=== PATIENT | male | born 1930 | race Caucasian/White ===

== ENCOUNTER → 2017-08-25 | Outpatient (CLI) | payer OTHER ==
[~2017-08-25] MED LIST: AMLO10TA2 PO; APIX5TAB PO; ASPI-1181 PO; ATOR40TA71 PO; CHOL200074 PO; FERR-82 PO; FISH1CAP39 PO; GLUC-148 PO; HYDR25TA PO; METO50TA18 PO; OMEP20CA10 PO; TAMS0.4C32 PO; VALS320T16 PO
== END | disposition home or self-care (01) ==
LOC: SHCH 15:10
PROVIDERS: ATTEND Internal Medicine Cardiovascular Disease
DX: I48.91 Unspecified atrial fibrillation (principal)
CPT/HCPCS: 93306

== ENCOUNTER → 2018-03-22 | Outpatient (CLI) | payer OTHER ==
[~2018-03-22] MED LIST changes: -AMLO10TA2 PO; +AMLO5TAB7 PO; -ASPI-1181 PO; +BACL10TA PO; +BRIM5DRO OS; +BUDE10.22 IH; -CHOL200074 PO; +DOXA4TAB3 PO; -FERR-82 PO; +FURO20TA4 PO; -GLUC-148 PO; +HYDR12.54 PO; -HYDR25TA PO; +LATA7.5D OU; +LOSA100T20 PO; +LOVENOX SQ; -METO50TA18 PO; -OMEP20CA10 PO; +PROP1DRO4 OP; -TAMS0.4C32 PO; +TYLENOL PO; -VALS320T16 PO
== END | disposition home or self-care (01) ==
LOC: RAH 09:35
PROVIDERS: ATTEND Internal Medicine
DX: I50.9 Heart failure, unspecified (principal); I25.10 Atherosclerotic heart disease of native coronary artery without angina pectoris; I48.91 Unspecified atrial fibrillation; Z85.038 Personal history of other malignant neoplasm of large intestine
CPT/HCPCS: 71046

== ENCOUNTER → 2018-04-06 | Outpatient (CLI) | payer OTHER ==
[~2018-04-06] MED LIST changes: +REGADENOSON 0.4 MG/5 ML PF SYG IVP SCH
== END | disposition home or self-care (01) ==
LOC: SHCH 08:03
PROVIDERS: ATTEND Internal Medicine Cardiovascular Disease
DX: I25.10 Atherosclerotic heart disease of native coronary artery without angina pectoris (principal)
CPT/HCPCS: 78452; 93017; 96374; A9500 ×2; J2785

== ENCOUNTER 2018-05-10 05:48 | Day surgery (SDC) | payer OTHER ==
[2018-05-05 09:21] LABS: BASOPHILS % (AUTO) 0.6 % (0.0-5.0); EOSINOPHILS % (AUTO) 1.7 % (0.0-8.0); HEMATOCRIT 45.4 % (42-54); LYMPHOCYTES % (AUTO) 11.7 % (21.0-51.0); MEAN CORPUSCULAR HEMOGLOBIN 28.9 pg (27.0-33.0); MEAN CORPUSCULAR HGB CONC 33.3 g/dL (32.0-36.0); MEAN CORPUSCULAR VOLUME 86.9 fL (79-99); MONOCYTES % (AUTO) 7.3 % (3.0-13.0); NEUTROPHILS % (AUTO) 78.7 % (40.0-77.0); NUCLEATED RED BLOOD CELLS 0.1 % (0.0-0.19); PLATELET COUNT (AUTO) 161 K/uL (130-400); RED BLOOD CELL COUNT(AUTO) 5.22 MIL/uL (4.50-6.20); RED CELL DISTRIBUTION WIDTH 15.7 % (11.0-15.5)
[2018-05-05 09:24] LABS: CREATININE 0.9 mg/dL (0.5-1.5); POTASSIUM 3.7 mmol/L (3.5-5.1)
[2018-05-05 09:30] LABS: APPEARANCE,URINE Clear (CLEAR); BILIRUBIN,URINE Negative (NEGATIVE); COLOR,URINE Yellow (YELLOW); GLUCOSE, URINE (UA) Negative (NEGATIVE); KETONES,URINE Negative (NEGATIVE); LEUKOCYTE ESTERASE ,URINE Negative (NEGATIVE); NITRATE,URINE Negative (NEGATIVE); OCCULT BLOOD,URINE Negative (NEGATIVE); PROTEIN,URINE Negative (NEGATIVE)
[2018-05-05 09:34] LABS: INR 0.99 (0.85-1.15); PARTIAL THROMBOPLASTIN TIME 28.1 SEC (26.3-35.5); PROTHROMBIN TIME 10.4 SEC (9.6-11.6)
--- NOTE | 2018-05-09 12:41 | NUR ---
CHEST XRAY INFORMED GINA IVORY OF ABNORMAL CHEST XRAY. NO ORDERS RECEIVED. PROCEED WITH PLANNED PROCEDURE.
[~2018-05-10] VITALS: Ht 172.7 cm; Wt 75.7 kg
[2018-05-10] VITALS (14 sets, daily range): BP systolic 130–170; BP diastolic 62–91
[~2018-05-10 05:48] MED LIST changes: -AMLO5TAB7 PO; -BACL10TA PO; -FISH1CAP39 PO; -HYDR12.54 PO; -LOSA100T20 PO; +LOSA100T58 PO; -LOVENOX SQ; +METO50TA18 PO; -REGADENOSON 0.4 MG/5 ML PF SYG IVP SCH; +SODIUM CHLORIDE 0.9% 500ML 500 ML IV SCH; -TYLENOL PO
[2018-05-10] MEDS ORDERED: SODIUM CHLORIDE 0.9% 1000ML 1,000 ML IV ONE (07:34)
[2018-05-10] MEDS ORDERED: METO-391 PO (07:43)
[2018-05-10] MEDS ORDERED: OMEG-125 PO (07:43)
[2018-05-10] MEDS ORDERED: HEPARIN SODIUM 1000UNIT/ML 10ML VIAL ONE (08:50)
[2018-05-10] MEDS ORDERED: IOHEXOL 350 MG/ML 100ML INFUS..BTL IV ONE ×2 (08:50→09:34)
[2018-05-10] MEDS ORDERED: IOHEXOL-350 50ML VIAL IV ONE (08:50)
[2018-05-10] MEDS ORDERED: LIDOCAINE HCL 2% 20ML ONE (08:50)
--- NOTE | 2018-05-10 09:05 | NUR ---
TO [facility] PT TAKEN TO [facility] VIA BED BY ERYN [facility]ITAL. PT VOIDED TWICE PRIOR TO TRANSFER.
[2018-05-10] MEDS ORDERED: LABETALOL HCL 5 MG/ML 20ML VIAL IV ONE (09:44)
[2018-05-10] MEDS ORDERED: SODIUM CHLORIDE 0.9% 10 ML VIAL IVP SCH (10:00)
--- NOTE | 2018-05-10 10:27 | NUR ---
RECEIVE PT RECEIVED FROM TELEVISION SERVICER VIA BED. AWAKE ALERT ORIENTED X3. PT STABLE. NO COMPLAINTS MADE. NOT IN ANY APPARENT DISTRESS. CATH SITE TO RIGHT GROIN SOFT, DRESSING DRY AND INTACT, NO OOZING NO HEMATOMA NOTED. PT INSTRUCTED TO KEEP RIGHT LEG STRAIGHT AND DO NOT ELEVATE HEAD, PT VERBALIZED UNDERSTANDING. PT STATES HE NEEDS TO VOID, URINAL IN PLACE.
--- NOTE | 2018-05-10 10:40 | NUR ---
VOID PT VOIDED 50 ML CLEAR YELLOW URINE, STATED HE FEELS HE NEED TO VOID MORE, CLEANED URINAL IN PLACE.
--- NOTE | 2018-05-10 13:09 | NUR ---
DIET PT TOLERATING DIET WELL. IN ROOM WITH PT.
--- NOTE | 2018-05-10 15:30 | NUR ---
ASSESS PT SUPINE ON BED, NO COMPLAINTS MADE, NOT IN ANY APPARENT DISTRESS. AT BEDSIDE. WILL CONTINUE TO MONITOR.
--- NOTE | 2018-05-10 17:15 | NUR ---
DISCHARGE PT DISCHARGED VIA WHEELCHAIR WITH . PT STABLE. NO COMPLAINTS MADE. NOT IN ANY APPARENT DISTRESS. DENIES PAIN OR CHEST PAIN. CATH SITE TO RIGHT GROIN REMAINS SOFT, NO OOZING NO HEMATOMA NOTED. DISCHARGE INSTRUCTIONS GIVEN TO PT AND . ALSO DEMONSTRATED TO PT AND ON HOW TO MONITOR SITE FOR BLEEDING AND HEMATOMA, VERBALIZED UNDERSTANDING.
== END 2018-05-10 17:15 | disposition home or self-care (01) ==
LOC: DAH 05:48
PROVIDERS: ATTEND Internal Medicine Cardiovascular Disease
DX: I25.118 Atherosclerotic heart disease of native coronary artery with other forms of angina pectoris (principal); Z79.899 Other long term (current) drug therapy; I11.0 Hypertensive heart disease with heart failure; I50.40 Unspecified combined systolic (congestive) and diastolic (congestive) heart failure; Z98.890 Other specified postprocedural states; I34.0 Nonrheumatic mitral (valve) insufficiency; E78.00 Pure hypercholesterolemia, unspecified; I48.2 Chronic atrial fibrillation; Z95.0 Presence of cardiac pacemaker; R07.9 Chest pain, unspecified
CPT/HCPCS: 36415; 71045; 80048; 81003; 85025; 85610; 85730; 93005; 93458; A4606; C1894; J1644 ×2; J3490 ×2; J7030; Q9965; Q9967 ×2

== ENCOUNTER → 2018-05-11 | Outpatient (CLI) | payer OTHER ==
[~2018-05-11] MED LIST changes: +METO-391 PO; -METO50TA18 PO; +OMEG-125 PO; -SODIUM CHLORIDE 0.9% 500ML 500 ML IV SCH
[2018-05-11 12:23] LABS: CREATININE 0.9 mg/dL (0.5-1.5)
== END | disposition home or self-care (01) ==
LOC: LAB 11:10
PROVIDERS: ATTEND Internal Medicine Medical Oncology
DX: C18.9 Malignant neoplasm of colon, unspecified (principal)
CPT/HCPCS: 36415; 82565; 84520

== ENCOUNTER → 2018-05-14 | Outpatient (CLI) | payer OTHER ==
[~2018-05-14] MED LIST changes: +IOHEXOL-350 75 ML VIAL IV ONE
== END | disposition home or self-care (01) ==
LOC: RAH 08:40
PROVIDERS: ATTEND Internal Medicine Medical Oncology
DX: C18.9 Malignant neoplasm of colon, unspecified (principal); K80.20 Calculus of gallbladder without cholecystitis without obstruction; J90 Pleural effusion, not elsewhere classified; J98.11 Atelectasis; I70.0 Atherosclerosis of aorta; N32.89 Other specified disorders of bladder
CPT/HCPCS: 74177; Q9967

== ENCOUNTER → 2018-09-19 | Outpatient (CLI) | payer OTHER ==
[~2018-09-19] MED LIST changes: +CETI10TA57 PO; -IOHEXOL-350 75 ML VIAL IV ONE; -LATA7.5D OU; -PROP1DRO4 OP; +[UNRECOGNIZED DRUG - OTHER] OU
[2018-09-19 11:30] LABS: BASOPHILS % (AUTO) 1.1 % (0.0-5.0); EOSINOPHILS % (AUTO) 1.8 % (0.0-8.0); LYMPHOCYTES % (AUTO) 9.2 % (21.0-51.0); MEAN CORPUSCULAR HEMOGLOBIN 29.4 pg (27.0-33.0); MEAN CORPUSCULAR HGB CONC 33.4 g/dL (32.0-36.0); MEAN CORPUSCULAR VOLUME 87.8 fL (79-99); MONOCYTES % (AUTO) 7.1 % (3.0-13.0); NEUTROPHILS % (AUTO) 80.8 % (40.0-77.0); NUCLEATED RED BLOOD CELLS 0.1 % (0.0-0.19); PLATELET COUNT (AUTO) 209 K/uL (130-400); RED BLOOD CELL COUNT(AUTO) 4.44 MIL/uL (4.50-6.20); RED CELL DISTRIBUTION WIDTH 15.9 % (11.0-15.5); WHITE BLOOD COUNT (AUTO) 6.1 K/uL (4.8-10.8)
[2018-09-19 11:38] LABS: HEMOGLOBIN A1C 6.3 % (4.0-6.0)
[2018-09-19 11:46] LABS: ALBUMIN 2.7 g/dL (3.5-5.0); BILIRUBIN,TOTAL 0.8 mg/dL (0.2-1.0); CREATININE 0.8 mg/dL (0.5-1.5); TOTAL PROTEIN, SERUM 6.8 g/dL (6.0-8.3)
== END | disposition home or self-care (01) ==
LOC: LAB 10:43
PROVIDERS: ATTEND Internal Medicine
DX: I11.9 Hypertensive heart disease without heart failure (principal); E78.49 Other hyperlipidemia; E11.59 Type 2 diabetes mellitus with other circulatory complications
CPT/HCPCS: 36415; 80053; 80061; 82043; 83036; 85025

== ENCOUNTER → 2018-09-27 | Outpatient (CLI) | payer OTHER | END | disposition home or self-care (01) | LOC: RAH 14:09 | PROVIDERS: ATTEND Internal Medicine | DX: R60.0 Localized edema (principal) | CPT/HCPCS: 93970 ==

== ENCOUNTER → 2019-05-15 | Outpatient (CLI) | payer OTHER ==
[~2019-05-15] MED LIST changes: +IOHEXOL-350 50ML VIAL IV ONE
== END | disposition home or self-care (01) ==
LOC: RAH 08:52
PROVIDERS: ATTEND Internal Medicine Medical Oncology
DX: C18.9 Malignant neoplasm of colon, unspecified (principal); K80.20 Calculus of gallbladder without cholecystitis without obstruction; N28.1 Cyst of kidney, acquired; J90 Pleural effusion, not elsewhere classified; J98.11 Atelectasis; Z93.3 Colostomy status
CPT/HCPCS: 74178; Q9967

== ENCOUNTER 2019-08-14 18:25 | Inpatient (IN) | payer OTHER ==
[~2019-08-14] VITALS: Ht 177.8 cm; Wt 76.7 kg
[~2019-08-14 18:25] MED LIST changes: -IOHEXOL-350 50ML VIAL IV ONE
[2019-08-14] MEDS ORDERED: ONDANSETRON HCL 4 MG/2 ML VIAL ONE (18:49)
[2019-08-14 19:23] LABS: BASOPHILS % (AUTO) 0.7 % (0.0-5.0); EOSINOPHILS % (AUTO) 0.1 % (0.0-8.0); HEMATOCRIT 39.7 % (42-54); LYMPHOCYTES % (AUTO) 3.4 % (21.0-51.0); MEAN CORPUSCULAR HEMOGLOBIN 28.2 pg (27.0-33.0); MEAN CORPUSCULAR VOLUME 85.6 fL (79-99); MONOCYTES % (AUTO) 6.3 % (3.0-13.0); NEUTROPHILS % (AUTO) 89.3 % (40.0-77.0); PLATELET COUNT (AUTO) 170 K/uL (130-400); RED BLOOD CELL COUNT(AUTO) 4.64 MIL/uL (4.50-6.20); RED CELL DISTRIBUTION WIDTH 15.4 % (11.0-15.5); WHITE BLOOD COUNT (AUTO) 9.7 K/uL (4.8-10.8)
[2019-08-14 19:26] LABS: CREATININE 1.3 mg/dL (0.5-1.5); POTASSIUM 3.2 mmol/L (3.5-5.1)
[2019-08-14 19:30] LABS: ALBUMIN 3.2 g/dL (3.5-5.0); BILIRUBIN,TOTAL 0.9 mg/dL (0.2-1.0); TOTAL PROTEIN, SERUM 7.4 g/dL (6.0-8.3)
[2019-08-14] MEDS: SODIUM CHLORIDE 0.9% 1000ML 1,000 ML IV SCH ×2 (20:32→23:34)
[2019-08-14] MEDS ORDERED: LACTULOSE 20 GM/30 ML UDCUP PO PRN (20:45)
[2019-08-14] MEDS ORDERED: ONDANSETRON HCL 4 MG/2 ML VIAL IV PRN (20:45)
[2019-08-14] MEDS ORDERED: ACETAMINOPHEN 325 MG TAB PO PRN ×2 (20:45)
[2019-08-14] MEDS ORDERED: FAMOTIDINE/PF 20 MG/2 ML VIAL IV ONE (20:45)
[2019-08-14] MEDS ORDERED: HYDRALAZINE HCL 20 MG/ML VIAL ONE (20:58)
[2019-08-14] MEDS ORDERED: INSULIN HUMULIN R 100 UNIT/ML 3ML SQ SCH (21:00)
[2019-08-14 22:00] VITALS: BP 135/76
--- NOTE | 2019-08-14 22:00 | NUR ---
ADMIT NOTE ADMIT TO ROOM 326 VIA STRETCHER FROM ER. PATIENT AWAKE, ALERT, OX3, PATIENT VERY FORGETFUL, LIMITED HISTORY Obainted from patient, right ac 20 with ivf infusing well, right ngt to lis draining brown gastric secretions, fall precautions,teach patient plan of care and expected outcome, patient verbalizes understanding at this time, but forgetful at times, poor historian, limited family history
[2019-08-14] MEDS ORDERED: TERB250T51 PO (22:41)
[2019-08-14] MEDS ORDERED: PANT40TA PO (22:41)
[2019-08-14] MEDS ORDERED: POTA-9 PO (22:41)
[2019-08-14] MEDS ORDERED: ISOS30TA6 PO (22:41)
[2019-08-14] MEDS ORDERED: LATA2.5D2 (22:41)
[2019-08-14] MEDS ORDERED: FURO40TA5 PO (22:41)
[2019-08-14] MEDS: MORPHINE SULFATE 2 MG/ML 1ML SYG IV PRN (22:51)
[2019-08-14] MEDS: LIDOCAINE HCL-MPF 1% 2ML VIAL IV PRN (23:34)
[2019-08-14] MEDS: POTASSIUM CHLORIDE 10MEQ/100ML 100 ML IV PRN (23:34)
[2019-08-15 03:00] VITALS: BP 149/67
[2019-08-15 04:59] LABS: BASOPHILS % (AUTO) 0.6 % (0.0-5.0); EOSINOPHILS % (AUTO) 0.2 % (0.0-8.0); LYMPHOCYTES % (AUTO) 4.3 % (21.0-51.0); MEAN CORPUSCULAR HEMOGLOBIN 28.6 pg (27.0-33.0); MEAN CORPUSCULAR HGB CONC 32.7 g/dL (32.0-36.0); MEAN CORPUSCULAR VOLUME 87.4 fL (79-99); MONOCYTES % (AUTO) 7.8 % (3.0-13.0); NEUTROPHILS % (AUTO) 86.7 % (40.0-77.0); PLATELET COUNT (AUTO) 158 K/uL (130-400); RED BLOOD CELL COUNT(AUTO) 4.69 MIL/uL (4.50-6.20); RED CELL DISTRIBUTION WIDTH 15.5 % (11.0-15.5)
[2019-08-15 05:24] LABS: CREATININE 1.1 mg/dL (0.5-1.5); POTASSIUM 3.3 mmol/L (3.5-5.1)
[2019-08-15] MEDS: POTASSIUM CHLORIDE 10MEQ/100ML 100 ML IV PRN ×2 (05:38→08:23)
[2019-08-15] MEDS: LIDOCAINE HCL-MPF 1% 2ML VIAL IV PRN (05:38)
[2019-08-15] MEDS: INSULIN HUMULIN R 100 UNIT/ML 3ML SQ SCH ×3 (05:54→18:00)
[2019-08-15 08:19] VITALS: BP 138/78
[2019-08-15] MEDS: FAMOTIDINE/PF 20 MG/2 ML VIAL IV SCH (08:23)
[2019-08-15] MEDS: ENOXAPARIN SODIUM 40 MG/0.4 ML SYRINGE SQ SCH (09:00)
--- NOTE | 2019-08-15 09:28 | NUR ---
SURGERY CONSULT CALLED DR LE. AWARE OF CONSULT.WILL COME TO SEE PATIENT LATER TODAY.
[2019-08-15 11:25] VITALS: BP 160/88
--- NOTE | 2019-08-15 11:36 | NUR ---
DCP CM met with pt discussed dc plans. Pt is independent prior to admission, lives at home with spouse. Pt has colostomy supplies, denies any other equipments/services. Feels safe to go back home, spouse and family able to assist with transportation and needs as necessary. DC plan to home once stable. CM to cont to follow up. Addendum: 08/15/19 at 1137 by PERLA EMERSON LVN CM Amended: Links added.
[2019-08-15] MEDS: ZOSYN 3.375GM+NS 50ML 50 ML IV SCH ×2 (13:41→19:54)
[2019-08-15 14:57] LABS: ABG OXYGEN SATURATION 56.9 % (95.0-99.0); BASE EXCESS,VENOUS BLOOD GAS 1.6 (-2.0-3.0); HCO3,VENOUS BLOOD GAS 26.3 (21.0-28.0); PCO2,VENOUS BLOOD GAS 42 (35-48); PH,VENOUS BLOOD GAS 7.416 (7.350-7.450)
--- NOTE | 2019-08-15 15:00 | NUR ---
RD NOTIFICATION PT ADMITTED FOR BOWEL OBSTRUCTION. PT IS NPO WITH NGT TO SUCTION, PENDING SURGICAL RECOMMENDATIONS. PT WITH POOR APPETITE AND WEIGHT LOSS PRIOR TO ADMIT. RECOMMEND TO CONTINUE WITH CURRENT POC. RD TO FOLLOW UP FOR CONTINUED POC. RECOMMEND CONSIDER ALTERED MEANS NUTRITION IF SUSPECTED NPO GREATER THAN 3 DAYS. INCREASED MALNUTRITION RISK SECONDARY TO PREVIOUS WEIGHT LOSS, POOR APPETITE, ADVANCED AGE. RD TO CONTINUE TO MONITOR. PLEASE NOTIFY ADDITIONAL NUTRITION CONCERNS ARISE. THANK YOU. Addendum: 08/15/19 at [address] Amended: Links added.
[2019-08-15 15:56] VITALS: BP 178/79
--- NOTE | 2019-08-15 18:21 | NUR ---
PATIENT'S IS VERY CONFUSED. HE FORGETS THAT HE IS IN THE HOSPITAL AND WANTS TO GO SEE HIS ALEXANDRO. ORIENTED PATIENT TO PLACE AND TIME, HOWEVER PATIENT NEEDS MORE REASSURANCE. I CALLED ALEXANDRO HIS , HE GOT TO TALK TO HER AND CALMED DOWN FOR A LITTLE WHILE. HOWEVER AFTER A FEW MINUTES, HE WAS ASKING FOR ALEXANDRO AGAIN AND WANTED TO GET OUT OF BED. DR FOLEY AWARE. ALEXANDRO STATED HE GETS CONFUSED LIKE THAT AT HOME.
[2019-08-15] MEDS: ALBUTEROL SULFATE 0.083% 2.5 MG/3 ML INH IH SCH ×2 (18:29→23:29)
[2019-08-15] MEDS: POTASSIUM CHLORIDE IV SCH ×2 (18:30→22:55)
[2019-08-15] MEDS: NACL IV SCH ×2 (18:30→22:55)
[2019-08-15] MEDS: DEXTROSE IV SCH ×2 (18:30→22:55)
--- NOTE | 2019-08-15 18:45 | NUR ---
PATIENT PULLED OUT HIS NGT.
[2019-08-15] MEDS: BUDESONIDE 0.5 MG/2 ML INH IH SCH (18:47)
--- NOTE | 2019-08-15 19:23 | NUR ---
14 FR NGT INSERTED. PLACEMENT VERIFIED GASTRIC CONTENT AND AIR BOLUS. PATIENT IS NOW ON A 1:1.
[2019-08-15 19:30] VITALS: BP 158/72
[2019-08-15] MEDS: ATORVASTATIN CALCIUM 40 MG TABLET PO SCH (19:35)
[2019-08-15] MEDS: LATANOPROST 2.5 ML DROPS OU SCH (19:54)
[2019-08-15] MEDS: MORPHINE SULFATE 2 MG/ML 1ML SYG IV PRN (20:00)
[2019-08-15] MEDS ORDERED: SUB PER P&T FOR ASTHMA OR COPD RECOMMENDATION IH SCH (21:00)
--- NOTE | 2019-08-15 21:15 | NUR ---
NGT NGT TO LIS SUCTION WITH POSITIVE PLACEMENT, 1:1 AT BEDSIDE, ANOTHER PATIENT PLACED IN ROOM NEXT DOOR 325 PER CLINICAL ACCOUNT SPECIALIST CHICHO CUMMINGS R.N. ,SO ORDER PACKER CAN SEE BOTH PATIENTS, PATIENT IN ROOM 325 BEDALARM ALARM WENT OFF WHEN ORDER PACKER WENT NEXT DOOR TO CHECK ON MY PATIENT , MR CARRANZA PULLED OUT NGT, HOSPITALIST CHUNG CIRCUIT BOARD ASSEMBLER INORMED WITH ORDERS,CLINICAL ACCOUNT SPECIALIST CHICHO CUMMINGS R.N. NOTIFIED
[2019-08-15] MEDS ORDERED: LORAZEPAM 2 MG/ML 1 ML VIAL IVP SCH (21:30)
--- NOTE | 2019-08-15 22:00 | NUR ---
HOSPITALIST Seema PLEITEZ OXIDATION OPERATOR TO SEE AND EXAMEN PATIENT AT BEDSIDE, WITH ORDERS
--- NOTE | 2019-08-15 22:30 | NUR ---
XRAY ABDOMINAL XRAY KUB PERFROMED AT BEDSIDE, PATIENT CONTINUES CONFUSED, AGITATED AT TIMES
[2019-08-15 23:25] VITALS: BP 169/81
--- NOTE | 2019-08-15 23:25 | NUR ---
RESULTS RELATED STAT KUB RESULTS TO CHUNG PECAN GROWER WITH ORDERS TO GIVEN LORAZEPAM 1 MG IVP , PATIENT CONTINUES CONFUSED, AGITATED, RESTLESS, PULLING OUT IV, YELLING, COMBATIVE
[2019-08-16 04:00] VITALS: BP 178/77
[2019-08-16] MEDS: ZOSYN 3.375GM+NS 50ML 50 ML IV SCH ×3 (04:03→22:36)
[2019-08-16 05:34] LABS: BASOPHILS % (AUTO) 0.6 % (0.0-5.0); EOSINOPHILS % (AUTO) 0.1 % (0.0-8.0); HEMATOCRIT 41.5 % (42-54); LYMPHOCYTES % (AUTO) 3.5 % (21.0-51.0); MEAN CORPUSCULAR HEMOGLOBIN 27.5 pg (27.0-33.0); MEAN CORPUSCULAR HGB CONC 30.8 g/dL (32.0-36.0); MEAN CORPUSCULAR VOLUME 89.1 fL (79-99); MONOCYTES % (AUTO) 10.3 % (3.0-13.0); NEUTROPHILS % (AUTO) 85.2 % (40.0-77.0); PLATELET COUNT (AUTO) 134 K/uL (130-400); RED BLOOD CELL COUNT(AUTO) 4.66 MIL/uL (4.50-6.20); RED CELL DISTRIBUTION WIDTH 15.6 % (11.0-15.5); WHITE BLOOD COUNT (AUTO) 7.7 K/uL (4.8-10.8)
[2019-08-16 05:50] LABS: MAGNESIUM 2.4 mg/dL (1.80-2.40); PHOSPHORUS 3.3 mg/dL (2.5-4.9); POTASSIUM 3.4 mmol/L (3.5-5.1)
[2019-08-16] MEDS: INSULIN HUMULIN R 100 UNIT/ML 3ML SQ SCH ×4 (06:00→18:00)
--- NOTE | 2019-08-16 06:00 | NUR ---
ngt place ngt #16 gauge catheter right nare , tolerated well, positive placement , place to lis as ordered
[2019-08-16] MEDS: ALBUTEROL SULFATE 0.083% 2.5 MG/3 ML INH IH SCH ×3 (06:57→18:43)
[2019-08-16] MEDS: BUDESONIDE 0.5 MG/2 ML INH IH SCH ×2 (06:57→18:43)
[2019-08-16 07:22] VITALS: BP 157/67
[2019-08-16] MEDS: Brimonidine Tartrate/Timolol (Combigan Eye Drops) 1 DROP OS SCH (09:00)
[2019-08-16] MEDS: FAMOTIDINE/PF 20 MG/2 ML VIAL IV SCH (09:08)
[2019-08-16] MEDS: ENOXAPARIN SODIUM 40 MG/0.4 ML SYRINGE SQ SCH (09:08)
[2019-08-16] MEDS: NACL IV SCH ×2 (09:30→19:30)
[2019-08-16] MEDS: POTASSIUM CHLORIDE IV SCH ×2 (09:30→19:30)
[2019-08-16] MEDS: DEXTROSE IV SCH ×2 (09:30→19:30)
[2019-08-16 09:33] LABS: THYROID STIMULATING HORMONE 2.36 uIU/mL (0.36-3.74)
[2019-08-16 10:40] VITALS: BP 162/76
[2019-08-16] MEDS ORDERED: POTASSIUM CHLORIDE 10MEQ/100ML 10 MEQ/100 ML ML IV ONE (10:45)
[2019-08-16] MEDS ORDERED: POTASSIUM CHLORIDE 20MEQ/100ML 100 ML IV SCH (11:30)
[2019-08-16] MEDS ORDERED: METOPROLOL TARTRATE 1 MG/ML 5ML VIAL IV PRN (14:15)
[2019-08-16 14:57] LABS: APPEARANCE,URINE Clear (CLEAR); BILIRUBIN,URINE Negative (NEGATIVE); COLOR,URINE Yellow (YELLOW); GLUCOSE, URINE (UA) Negative (NEGATIVE); KETONES,URINE Negative (NEGATIVE); LEUKOCYTE ESTERASE ,URINE Moderate (NEGATIVE); NITRATE,URINE Negative (NEGATIVE); OCCULT BLOOD,URINE Large (NEGATIVE); PROTEIN,URINE POS 2+ mg/dL (NEGATIVE); UROBILINOGEN,URINE 0.2 mg/dL (0.2-1.0)
[2019-08-16 15:01] LABS: CREATININE,URINE RANDOM 84 mg/dL (30-135); SODIUM,URINE RANDOM 144 mmol/l (40-220)
[2019-08-16 15:17] LABS: BACTERIA,URINE Few /HPF (None Seen); RBC,URINE 26-50 /HPF (0-1)
[2019-08-16 15:22] LABS: SQUAMOUS EPITHELIAL CELL,UR Rare /HPF (0-2)
[2019-08-16 15:41] VITALS: BP 173/84
[2019-08-16] MEDS ORDERED: DIATR MEGLU/DIATRIZOATE SODIUM 30 ML BOTTLE ONE ×3 (16:09→16:38)
[2019-08-16] MEDS: THIAMINE HCL 100 MG/ML 2ML VIAL IVP SCH (17:41)
[2019-08-16] MEDS: CYANOCOBALAMIN (VITAMIN B-12) 1000 MCG/ML 1ML VIAL IM SCH (17:41)
[2019-08-16] MEDS: HYDRALAZINE HCL 20 MG/ML VIAL IV PRN (17:50)
--- NOTE | 2019-08-16 20:20 | NUR ---
NOTIFIED DR LE ON LACTIC ACID OF 2.8 .
[2019-08-16 20:30] LABS: PCO2,VENOUS BLOOD GAS 25 (35-48)
[2019-08-16 20:32] LABS: BASE EXCESS,VENOUS BLOOD GAS 4.4 (-2.0-3.0); HCO3,VENOUS BLOOD GAS 24.3 (21.0-28.0)
[2019-08-16 20:58] LABS: PH,VENOUS BLOOD GAS 7.607 (7.350-7.450)
[2019-08-16] MEDS: ATORVASTATIN CALCIUM 40 MG TABLET PO SCH (21:00)
[2019-08-16 21:02] LABS: BASOPHILS % (AUTO) 0.4 % (0.0-5.0); EOSINOPHILS % (AUTO) 1.2 % (0.0-8.0); HEMATOCRIT 45.3 % (42-54); LYMPHOCYTES % (AUTO) 2.8 % (21.0-51.0); MEAN CORPUSCULAR HEMOGLOBIN 28.2 pg (27.0-33.0); MEAN CORPUSCULAR HGB CONC 31.8 g/dL (32.0-36.0); MEAN CORPUSCULAR VOLUME 88.6 fL (79-99); MONOCYTES % (AUTO) 10.3 % (3.0-13.0); NEUTROPHILS % (AUTO) 84.9 % (40.0-77.0); PLATELET COUNT (AUTO) 138 K/uL (130-400); RED BLOOD CELL COUNT(AUTO) 5.11 MIL/uL (4.50-6.20); RED CELL DISTRIBUTION WIDTH 15.4 % (11.0-15.5); WHITE BLOOD COUNT (AUTO) 7.4 K/uL (4.8-10.8)
--- NOTE | 2019-08-16 21:15 | NUR ---
RADIOLOGY SPOKE WITH LAURIE IN RADIOLOGY. SAID THE STUDIES WERE COMPLETED AND THE NG CAN BE UNCLAMPED AT THIS TIME. CONNECTED NG TO CONTINUOUS SUCTION ON MEDIUM- PREVIOUS SETTINGS SET. DARK GREEN, WITH SEDIMENT BEING SUCTIONED FROM NG. SUCTION CANISTER AT 600ML AT THIS TIME.
--- NOTE | 2019-08-16 21:22 | NUR ---
CRITICAL RESULTS CALLED MD MIMI ABOUT LA OF 2.8 AND A pH 7.8 ON THE VENOUS BLOOD GAS. MED SAID HE WILL COME IN TO SEE THE PATIENT, NO NEW ORDERS GIVEN AT THIS TIME.
[2019-08-16] MEDS: LATANOPROST 2.5 ML DROPS OU SCH (22:47)
--- NOTE | 2019-08-16 23:15 | NUR ---
MD MIMI RAMOS MD SPOKE WITH PT AT BEDSIDE. GAVE ORDERS- ENTERED INTO [facility]. PT VERBALIZED CONSENT FOR PROCEDURE OF EXPLORATORY LAPAROTOMY WITH REVISION OF COLOSTOMY.
[2019-08-16] MEDS ORDERED: SODIUM CHLORIDE 0.9% 500ML 500 ML IV SCH (23:30)
--- NOTE | 2019-08-16 23:45 | NUR ---
SOLE SEAMER INFORMED ABOUT SCHEDULED SURGERY FOR 1000 ON 08/16. ORDERS FAXED TO 1033. MARJ DONOVAN RN SAID THE SURGERY NEEDS TO BE APPROVED FIRST, BUT WILL PLACE IT ON THE SCHEDULE.
[2019-08-16 23:59] VITALS: BP_SYST 136; BP_SYST 148; BP_DIAS 55; BP_DIAS 78
[2019-08-17] VITALS (14 sets, daily range): BP systolic 115–185; BP diastolic 51–92
[2019-08-17] MEDS: ALBUTEROL SULFATE 0.083% 2.5 MG/3 ML INH IH SCH ×5 (00:03→23:17)
[2019-08-17] MEDS ORDERED: ZOSYN 3.375GM+NS 50ML 50 ML IV SCH (01:00)
--- NOTE | 2019-08-17 01:02 | NUR ---
CONSENT FOR EXPLORATORY LAPAROTOMY WITH COLOSTOMY REVISION, SIGNED AND PLACED IN CHART.
[2019-08-17] MEDS: NACL IV SCH (03:24)
[2019-08-17] MEDS: DEXTROSE IV SCH (03:24)
[2019-08-17] MEDS: POTASSIUM CHLORIDE IV SCH (03:24)
[2019-08-17 04:47] LABS: HEMATOCRIT 43.1 % (42-54); MEAN CORPUSCULAR HEMOGLOBIN 28.7 pg (27.0-33.0); MEAN CORPUSCULAR HGB CONC 32.3 g/dL (32.0-36.0); PLATELET COUNT (AUTO) 139 K/uL (130-400); RED BLOOD CELL COUNT(AUTO) 4.84 MIL/uL (4.50-6.20); RED CELL DISTRIBUTION WIDTH 15.7 % (11.0-15.5); WHITE BLOOD COUNT (AUTO) 6.5 K/uL (4.8-10.8)
[2019-08-17 05:11] LABS: BAND NEUTROPHILS % (MANUAL) 16 % (0-2); LYMPHOCYTES % (MANUAL) 4 % (22-44); MAN.DIFF COMMENT-IMPRESSION MANUAL DIFFERENTIAL; MONOCYTES % (MANUAL) 2 % (2-9); PLATELET MORPHOLOGY COMMENT ADEQUATE; SEGMENTED NEUTROPHILS % 78 % (40-70)
[2019-08-17 05:15] LABS: ALBUMIN 2.3 g/dL (3.5-5.0); BILIRUBIN,TOTAL 0.8 mg/dL (0.2-1.0); CREATININE 1.2 mg/dL (0.5-1.5); MAGNESIUM 3.3 mg/dL (1.80-2.40); PHOSPHORUS 3.1 mg/dL (2.5-4.9); POTASSIUM 3.4 mmol/L (3.5-5.1); TOTAL PROTEIN, SERUM 5.9 g/dL (6.0-8.3); URIC ACID 3.6 mg/dL (2.6-7.2)
[2019-08-17] MEDS: INSULIN HUMULIN R 100 UNIT/ML 3ML SQ SCH ×4 (06:00→18:00)
[2019-08-17] MEDS: ZOSYN 3.375GM+NS 50ML 50 ML IV SCH ×2 (06:05→19:36)
[2019-08-17] MEDS: BUDESONIDE 0.5 MG/2 ML INH IH SCH ×2 (06:20→18:48)
--- NOTE | 2019-08-17 08:10 | NUR ---
MIMI PAGED UPDATED MIMI ON PT'S STATUS OVER NIGHT. REPORTED NO OUTPUT FROM COLOSTOMY, CONTINUES WITH GREEN/ BROWN NG DRAINAGE. NO PAIN. NO AMS. SAYS HE WILL FUP WITH PT THIS AM. INFORMED THAT SURGERY HAS BEEN SCHEDULED, PENDING APPROVAL FOR SURGERY.
[2019-08-17] MEDS ORDERED: DEXTROSE 5%-WATER 1,000 ML IV SCH (08:30)
[2019-08-17] MEDS: Brimonidine Tartrate/Timolol (Combigan Eye Drops) 1 DROP OS SCH (09:00)
[2019-08-17] MEDS: CYANOCOBALAMIN (VITAMIN B-12) 1000 MCG/ML 1ML VIAL IM SCH (09:00)
--- NOTE | 2019-08-17 10:03 | NUR ---
TELEPHONE CONSENT GIVEN FOR EXPLORATORY LAPAROTOMY WITH COLONOSCOPY REVISION BY SPOUSE ALEXANDRO CARRANZA. VERIFIED BY PRITI RIVAS, CHARGE NURSE.
[2019-08-17] MEDS ORDERED: LIDOCAINE PF 2% 5ML ABBOJECT ONE (10:41)
[2019-08-17] MEDS ORDERED: PHENYLEPHRINE HCL 10 MG/ML 1ML VIAL IV ONE (10:41)
[2019-08-17] MEDS ORDERED: SUCCINYLCHOLINE CHLORIDE 20 MG/ML 10 ML VIAL ONE (10:41)
[2019-08-17] MEDS ORDERED: FENTANYL CITRATE PF 50 MCG/1 ML 2ML VIAL ONE ×2 (10:42→16:54)
[2019-08-17] MEDS ORDERED: ROCURONIUM 10MG/1ML SYR 10 MG/ML ML ONE ×2 (10:42→14:06)
[2019-08-17] MEDS ORDERED: PROPOFOL 10 MG/ML 20ML VIAL IV ONE (10:42)
[2019-08-17] MEDS: POTASSIUM CHLORIDE 10MEQ/100ML 100 ML IV PRN (11:10)
[2019-08-17 11:16] LABS: INR 1.01 (0.85-1.15); PROTHROMBIN TIME 10.9 SEC (9.6-11.6)
[2019-08-17] MEDS: THIAMINE HCL 100 MG/ML 2ML VIAL IVP SCH (11:21)
[2019-08-17] MEDS: FAMOTIDINE/PF 20 MG/2 ML VIAL IV SCH (11:21)
[2019-08-17] MEDS ORDERED: KETAMINE 50MG/ML SYRINGE 50 MG/ML DISP.SYRIN IV ONE (12:49)
[2019-08-17] MEDS ORDERED: CEFOXITIN SODIUM 2 GM VIAL ONE (13:35)
[2019-08-17 15:20] LABS: ABG BASE EXCESS -5.3 mmol/L (-2.0-3.0); ABG HCO3 20.7 mmol/L (21.0-28.0); ABG OXYGEN SATURATION 98.7 % (95.0-99.0); ABG PCO2 42 mmHg (35-48)
[2019-08-17] MEDS ORDERED: ROPIVACAINE 0.5% 5MG/ML 30ML IJ ONE (15:22)
[2019-08-17] MEDS ORDERED: GLYCOPYRROLATE 1 MG/5 ML SYRINGE ONE (15:32)
[2019-08-17] MEDS ORDERED: NEOSTIGMINE 5MG/5ML SYR IV ONE (15:32)
[2019-08-17] MEDS ORDERED: SODIUM CHLORIDE 0.9% 10 ML VIAL ONE ×2 (15:41→15:44)
[2019-08-17] MEDS ORDERED: ONDANSETRON HCL 4 MG/2 ML VIAL ONE (15:55)
[2019-08-17] MEDS ORDERED: SUGAMMADEX SODIUM 200 MG/2 ML VIAL IV ONE (16:44)
[2019-08-17] MEDS ORDERED: KETOROLAC TROMETHAMINE 30MG/ML ONE (16:51)
[2019-08-17] MEDS ORDERED: FENTANYL CITRATE PF 50 MCG/1 ML 2ML VIAL IVP PRN (17:30)
[2019-08-17 17:41] LABS: ABG BASE EXCESS -6.9 mmol/L (-2.0-3.0); ABG HCO3 19.2 mmol/L (21.0-28.0); ABG OXYGEN SATURATION 99.7 % (95.0-99.0); ABG PCO2 41 mmHg (35-48)
[2019-08-17] MEDS: D5W-1/2 NS/20MEQ KCL 1,000 ML IV SCH (18:02)
[2019-08-17 18:08] LABS: MEAN CORPUSCULAR HEMOGLOBIN 28.6 pg (27.0-33.0); MEAN CORPUSCULAR HGB CONC 31.5 g/dL (32.0-36.0); MEAN CORPUSCULAR VOLUME 90.7 fL (79-99); PLATELET COUNT (AUTO) 153 K/uL (130-400); RED BLOOD CELL COUNT(AUTO) 5.18 MIL/uL (4.50-6.20); RED CELL DISTRIBUTION WIDTH 15.9 % (11.0-15.5); WHITE BLOOD COUNT (AUTO) 7.6 K/uL (4.8-10.8)
[2019-08-17 18:25] LABS: CREATININE 1.4 mg/dL (0.5-1.5); POTASSIUM 3.6 mmol/L (3.5-5.1)
[2019-08-17 18:30] LABS: ALBUMIN 2.2 g/dL (3.5-5.0); BILIRUBIN,TOTAL 0.8 mg/dL (0.2-1.0); PHOSPHORUS 4.4 mg/dL (2.5-4.9); TOTAL PROTEIN, SERUM 5.8 g/dL (6.0-8.3)
[2019-08-17] MEDS: ATORVASTATIN CALCIUM 40 MG TABLET PO SCH (19:17)
[2019-08-17] MEDS: METOPROLOL TARTRATE 1 MG/ML 5ML VIAL IV PRN (19:35)
[2019-08-17] MEDS ORDERED: LACTATED RINGERS 1000ML 1,000 ML IV SCH (20:00)
[2019-08-17] MEDS: LATANOPROST 2.5 ML DROPS OU SCH (20:05)
[2019-08-17 21:29] LABS: ABG BASE EXCESS -3.3 mmol/L (-2.0-3.0); ABG HCO3 20.9 mmol/L (21.0-28.0); ABG OXYGEN SATURATION 98.9 % (95.0-99.0); ABG PCO2 35 mmHg (35-48)
[2019-08-17] MEDS: HYDRALAZINE HCL 20 MG/ML VIAL IV PRN (21:54)
[2019-08-18] VITALS (23 sets, daily range): BP systolic 114–179; BP diastolic 57–77
[2019-08-18] MEDS ORDERED: LACTATED RINGERS 1000ML 1,000 ML IV ONE ×2 (00:29→00:45)
[2019-08-18] MEDS: D5W-1/2 NS/20MEQ KCL 1,000 ML IV SCH ×2 (03:30→08:24)
[2019-08-18] MEDS: INSULIN HUMULIN R 100 UNIT/ML 3ML SQ SCH ×5 (06:00→23:40)
[2019-08-18 06:08] LABS: BASOPHILS % (AUTO) 0.3 % (0.0-5.0); EOSINOPHILS % (AUTO) 0.4 % (0.0-8.0); HEMATOCRIT 40.1 % (42-54); LYMPHOCYTES % (AUTO) 3.1 % (21.0-51.0); MEAN CORPUSCULAR HEMOGLOBIN 28.1 pg (27.0-33.0); MEAN CORPUSCULAR HGB CONC 31.4 g/dL (32.0-36.0); MEAN CORPUSCULAR VOLUME 89.3 fL (79-99); MONOCYTES % (AUTO) 8.6 % (3.0-13.0); NEUTROPHILS % (AUTO) 87.1 % (40.0-77.0); PLATELET COUNT (AUTO) 123 K/uL (130-400); RED BLOOD CELL COUNT(AUTO) 4.49 MIL/uL (4.50-6.20); RED CELL DISTRIBUTION WIDTH 16.2 % (11.0-15.5); WHITE BLOOD COUNT (AUTO) 10.8 K/uL (4.8-10.8)
[2019-08-18] MEDS: BUDESONIDE 0.5 MG/2 ML INH IH SCH ×2 (06:11→18:11)
[2019-08-18] MEDS: ALBUTEROL SULFATE 0.083% 2.5 MG/3 ML INH IH SCH ×4 (06:11→23:12)
[2019-08-18 06:30] LABS: ALBUMIN 1.8 g/dL (3.5-5.0); BILIRUBIN,TOTAL 0.8 mg/dL (0.2-1.0); CREATININE 1.2 mg/dL (0.5-1.5); PHOSPHORUS 3.2 mg/dL (2.5-4.9); POTASSIUM 3.8 mmol/L (3.5-5.1)
[2019-08-18] MEDS: ENOXAPARIN SODIUM 40 MG/0.4 ML SYRINGE SQ SCH (08:25)
[2019-08-18] MEDS: THIAMINE HCL 100 MG/ML 2ML VIAL IVP SCH (08:25)
[2019-08-18] MEDS: ZOSYN 3.375GM+NS 50ML 50 ML IV SCH ×2 (08:25→19:23)
[2019-08-18] MEDS: Brimonidine Tartrate/Timolol (Combigan Eye Drops) 1 DROP OS SCH (08:34)
[2019-08-18] MEDS: CYANOCOBALAMIN (VITAMIN B-12) 1000 MCG/ML 1ML VIAL IM SCH (08:52)
[2019-08-18] MEDS: FAMOTIDINE/PF 20 MG/2 ML VIAL IV SCH (08:52)
[2019-08-18] MEDS ORDERED: LACTATED RINGERS 1000ML 1,000 ML IV SCH (11:15)
[2019-08-18 11:46] LABS: INR 1.11 (0.85-1.15); PROTHROMBIN TIME 11.9 SEC (9.6-11.6)
[2019-08-18 11:58] LABS: POTASSIUM,URINE RANDOM 80 mmol/L (25-125); SODIUM,URINE RANDOM < 15 mmol/l (40-220)
[2019-08-18] MEDS: HYDRALAZINE HCL 20 MG/ML VIAL IV PRN (17:21)
--- NOTE | 2019-08-18 19:00 | NUR ---
PT AT THIS TIME IS CONFUSED, AAO1. ATTEMPTING TO GET OUT OF BED AND TAKE OFF PULSE OX AND GARBER CATHETER. PT HR IS AFIB 120-130'S. WILL GIVE SOME HALDOL PRN AND LOPRESSOR.
[2019-08-18] MEDS: HALOPERIDOL LACTATE 5 MG/ML VIAL IV PRN ×2 (19:18→23:35)
[2019-08-18] MEDS: METOPROLOL TARTRATE 1 MG/ML 5ML VIAL IV PRN (19:59)
[2019-08-18] MEDS: ATORVASTATIN CALCIUM 40 MG TABLET PO SCH (20:34)
[2019-08-18] MEDS: LATANOPROST 2.5 ML DROPS OU SCH (21:22)
--- NOTE | 2019-08-18 23:30 | NUR ---
PT AT THIS TIME IS CALMER, AA01, ATTEMPTING TO SLEEP. WAS GIVEN HALDOL PRN. STATES NO PAIN. VOIDING INTO GARBER. PICC LINE PATENT.
[2019-08-18] MEDS: MORPHINE SULFATE 2 MG/ML 1ML SYG IV PRN (23:51)
[2019-08-19] VITALS (26 sets, daily range): BP systolic 116–188; BP diastolic 50–86
--- NOTE | 2019-08-19 03:00 | NUR ---
DR. LE ROUNDED ON PT. ASSESSED PT. WAS INFORMED OF DISTENTION NOTED. STATES TO CONTINUE ON NGT LOW SUCTION. FLUSH QSHIFT. ICE CHIPS ALLOWED, Q4HRS. TO KEEP GARBER A TOTAL OF 10 DAYS SINCE SURGERY. HE IS AWARE OF PT'S MENTAL STATUS. TO DECREASE NARCOTICS, AGREES TO HALDOL USE WHEN PT BECOME AGITATED. TO HAVE PT GET PT UP TO CHAIR IN THE AM.
[2019-08-19 03:53] LABS: HEMATOCRIT 38.5 % (42-54); MEAN CORPUSCULAR HEMOGLOBIN 27.8 pg (27.0-33.0); MEAN CORPUSCULAR HGB CONC 31.2 g/dL (32.0-36.0); MEAN CORPUSCULAR VOLUME 89.1 fL (79-99); PLATELET COUNT (AUTO) 134 K/uL (130-400); RED BLOOD CELL COUNT(AUTO) 4.32 MIL/uL (4.50-6.20); WHITE BLOOD COUNT (AUTO) 10.1 K/uL (4.8-10.8)
[2019-08-19 04:13] LABS: CREATININE 1.3 mg/dL (0.5-1.5); PHOSPHORUS 2.6 mg/dL (2.5-4.9); POTASSIUM 3.6 mmol/L (3.5-5.1)
[2019-08-19] MEDS: INSULIN HUMULIN R 100 UNIT/ML 3ML SQ SCH ×3 (05:29→17:50)
--- NOTE | 2019-08-19 05:36 | NUR ---
SADIB BEING DONE AT THIS TIME.
[2019-08-19] MEDS: ZOSYN 3.375GM+NS 50ML 50 ML IV SCH ×2 (06:20→18:18)
[2019-08-19] MEDS: ALBUTEROL SULFATE 0.083% 2.5 MG/3 ML INH IH SCH ×4 (06:23→23:06)
[2019-08-19] MEDS: D5W-1/2 NS/20MEQ KCL 1,000 ML IV SCH ×3 (06:23→15:53)
[2019-08-19] MEDS: BUDESONIDE 0.5 MG/2 ML INH IH SCH ×2 (06:23→18:40)
[2019-08-19] MEDS: FAMOTIDINE/PF 20 MG/2 ML VIAL IV SCH (08:31)
[2019-08-19] MEDS: CYANOCOBALAMIN (VITAMIN B-12) 1000 MCG/ML 1ML VIAL IM SCH (08:31)
[2019-08-19] MEDS: THIAMINE HCL 100 MG/ML 2ML VIAL IVP SCH (08:31)
[2019-08-19] MEDS: ENOXAPARIN SODIUM 40 MG/0.4 ML SYRINGE SQ SCH (08:34)
[2019-08-19] MEDS: Brimonidine Tartrate/Timolol (Combigan Eye Drops) 1 DROP OS SCH (08:44)
--- NOTE | 2019-08-19 10:55 | NUR ---
DR. CEJA IN ROOM SPEAKING WITH PT. RE:PLAN OF CARE. QUESTIONS ANSWERED AND PT. VERBALIZED UNDERSTANDING.
[2019-08-19] MEDS: POTASSIUM CHLORIDE 10MEQ/100ML 100 ML IV PRN (11:09)
[2019-08-19] MEDS: METOPROLOL TARTRATE 1 MG/ML 5ML VIAL IV SCH ×2 (12:39→18:19)
--- NOTE | 2019-08-19 14:38 | NUR ---
DR. HORNER IN ROOM SPEAKING WITH PT. RE:PLAN OF CARE. QUESTIONS ANSWERED BY DR. HORNER.
--- NOTE | 2019-08-19 15:00 | NUR ---
SITTING UP IN RECLINER AT BEDSIDE WITH EYES CLOSED, RESP.'S EVEN AND UNLABORED. CALL LIGHT WITHIN REACH. PT. VISIBLE FROM NURSE'S STATION.
--- NOTE | 2019-08-19 15:42 | NUR ---
SHADIA FOLLOW UP Pt with bowel rest. PICC placed. Notification for TPN Initiation. TPN recommendations: 65mls/hr + Intralipid MWF. Order placed in Pt chart. RN notified. S/p Ex lap. Pt with abdominal distention, no colostomy output per EMR. RD to continue to monitor. Please notify as additional nutrition concerns arise. Thank you. Addendum: 08/19/19 at [address] Amended: Links added.
[2019-08-19] MEDS: HALOPERIDOL LACTATE 5 MG/ML VIAL IV PRN (15:53)
--- NOTE | 2019-08-19 16:00 | NUR ---
pt agitated trying to get out of chair marguerite chandler
--- NOTE | 2019-08-19 19:06 | NUR ---
PT. SITTING IN RECLINER AT BEDSIDE WATCHING TELEVISION. ROOM DOOR OPEN, VISIBLE FROM NURSE'S STATION; CALL LIGHT WITHIN REACH. REPORT TO INCOMING SHIFT.
[2019-08-19] MEDS: HYDRALAZINE HCL 20 MG/ML VIAL IV PRN (20:56)
[2019-08-19] MEDS: ATORVASTATIN CALCIUM 40 MG TABLET PO SCH (20:56)
[2019-08-19] MEDS: LATANOPROST 2.5 ML DROPS OU SCH (20:56)
[2019-08-20] VITALS (18 sets, daily range): BP systolic 116–197; BP diastolic 53–93
[2019-08-20] MEDS: METOPROLOL TARTRATE 1 MG/ML 5ML VIAL IV SCH ×4 (00:53→17:25)
[2019-08-20 03:45] LABS: MEAN CORPUSCULAR HGB CONC 31.5 g/dL (32.0-36.0); MEAN CORPUSCULAR VOLUME 88.9 fL (79-99); PLATELET COUNT (AUTO) 129 K/uL (130-400); RED BLOOD CELL COUNT(AUTO) 3.71 MIL/uL (4.50-6.20); RED CELL DISTRIBUTION WIDTH 16.1 % (11.0-15.5); WHITE BLOOD COUNT (AUTO) 9.1 K/uL (4.8-10.8)
[2019-08-20 04:03] LABS: CREATININE 0.9 mg/dL (0.5-1.5); POTASSIUM 3.4 mmol/L (3.5-5.1)
[2019-08-20] MEDS: D5W-1/2 NS/20MEQ KCL 1,000 ML IV SCH (05:26)
[2019-08-20] MEDS: POTASSIUM CHLORIDE 10MEQ/100ML 100 ML IV PRN (05:36)
[2019-08-20] MEDS: INSULIN HUMULIN R 100 UNIT/ML 3ML SQ SCH ×4 (06:00→18:00)
[2019-08-20] MEDS: ALBUTEROL SULFATE 0.083% 2.5 MG/3 ML INH IH SCH ×4 (06:21→23:02)
[2019-08-20] MEDS: BUDESONIDE 0.5 MG/2 ML INH IH SCH ×2 (06:21→18:07)
[2019-08-20] MEDS: Brimonidine Tartrate/Timolol (Combigan Eye Drops) 1 DROP OS SCH (07:34)
[2019-08-20] MEDS: FAMOTIDINE/PF 20 MG/2 ML VIAL IV SCH (07:52)
[2019-08-20] MEDS: ZOSYN 3.375GM+NS 50ML 50 ML IV SCH ×2 (07:52→18:35)
[2019-08-20] MEDS: THIAMINE HCL 100 MG/ML 2ML VIAL IVP SCH (07:52)
[2019-08-20] MEDS: CYANOCOBALAMIN (VITAMIN B-12) 1000 MCG/ML 1ML VIAL IM SCH (07:52)
[2019-08-20] MEDS: ENOXAPARIN SODIUM 40 MG/0.4 ML SYRINGE SQ SCH (08:02)
[2019-08-20] MEDS: HYDRALAZINE HCL 20 MG/ML VIAL IV PRN ×2 (08:38→17:56)
[2019-08-20] MEDS ORDERED: M.V.I. IV [ADULT] 10 ML in CLINIMIX E 5%-15% 2,000 ML IV ONE (12:00)
--- NOTE | 2019-08-20 13:18 | NUR ---
DR. Dandre CEJA IN ROOM SPEAKING WITH PT. RE:PLAN OF CARE AND QUESTIONS ANSWERED. PT. SITTING IN RECLINER AT BEDSIDE.
--- NOTE | 2019-08-20 13:30 | NUR ---
ASSISTED BACK TO BED FROM RECLINER PER PT.'S REQUEST. NGT PLACED BACK TO SUCTION.CALL LIGHT WITHIN REACH, VERBALIZED ABILITY TO USE. ROOM DOOR OPEN, VISIBLE FROM NURSE'S STATION.
--- NOTE | 2019-08-20 13:33 | NUR ---
ASSISTED BACK TO BED FROM RECLINER. CALL LIGHT WITHIN REACH, VERBALIZED ABILITY TO USE. ROOM DOOR OPEN, VISIBLE FROM NURSE'S STATION.
[2019-08-20] MEDS: POTASSIUM CHLORIDE 20 MEQ in DEXTROSE 5%-WATER 1,000 ML IV SCH (14:44)
--- NOTE | 2019-08-20 14:46 | NUR ---
RECEIVED CALL FROM PT.'S SPOUSE AND FAMILY MEMBER; UPDATED ON STATUS AND QUESTIONS ANSWERED. VERBALIZED UNDERSTANDING.
[2019-08-20] MEDS: METOCLOPRAMIDE 10 MG/2 ML VIAL IVP SCH (17:24)
--- NOTE | 2019-08-20 20:30 | NUR ---
PATIENT UPDATE Received order for pt to transfer to room 402 at 2009, report given to Kady Delong RN who will assume care of pt on the floor. Pt transferred via the bed at 2029 with 2 duty officer's, vital signs stable, not in any form of distress.
--- NOTE | 2019-08-20 20:40 | NUR ---
PATIENT RECEIVED FROM ICU, STATUS CHANGE TO PCCU STATUS. PATIENT IS AAOX2-3, NO ACUTE DISTRESS NOTED. REPORT FROM HO CERNA. POD# EXP LAP WITH EXTENSIVE LYSIS OF ADHESIONS FOR SMALL BOWEL OBSTRUCTION. NGT NOTED, PLACEMENT VERIFIED AND CONNECTED TO LOW INTERMITTENT WALL SUCTION. ABDOMINAL DRESSING NOTED, D/T, SAPNA DRAIN SECURED TO PATIENT. COLOSTOMY NOTED WITH NO OUT PUT IN BAG. HYPOACTIVE BOWEL SOUNDS. F/C NOTED, SECURED TO PATIENT AND DRAINING TO GRAVITY. PICC LINE TO BIBI, ALL PORTS PATENT. POC DISCUSSED WITH PATIENT. TELE AFIB 92. WILL CONT TO MONITOR CLOSELY. CALL STARK IS WITH IN REACH. SR UP X4. Addendum: 08/20/19 at 2209 by MARIELLA VELASCO RN RN Amended: Links added.
[2019-08-20] MEDS: ATORVASTATIN CALCIUM 40 MG TABLET PO SCH (20:42)
[2019-08-20] MEDS: LATANOPROST 2.5 ML DROPS OU SCH (21:25)
[2019-08-21] VITALS (7 sets, daily range): BP systolic 133–173; BP diastolic 68–89
[2019-08-21] MEDS: METOCLOPRAMIDE 10 MG/2 ML VIAL IVP SCH ×5 (00:28→23:09)
[2019-08-21] MEDS: METOPROLOL TARTRATE 1 MG/ML 5ML VIAL IV SCH ×5 (00:29→23:10)
[2019-08-21] MEDS: INSULIN HUMULIN R 100 UNIT/ML 3ML SQ SCH ×5 (00:32→23:43)
[2019-08-21] MEDS: POTASSIUM CHLORIDE 20 MEQ in DEXTROSE 5%-WATER 1,000 ML IV SCH (04:01)
[2019-08-21 05:43] LABS: HEMATOCRIT 34.6 % (42-54); MEAN CORPUSCULAR HEMOGLOBIN 27.5 pg (27.0-33.0); MEAN CORPUSCULAR HGB CONC 31.2 g/dL (32.0-36.0); PLATELET COUNT (AUTO) 167 K/uL (130-400); RED BLOOD CELL COUNT(AUTO) 3.93 MIL/uL (4.50-6.20); RED CELL DISTRIBUTION WIDTH 15.9 % (11.0-15.5); WHITE BLOOD COUNT (AUTO) 9.3 K/uL (4.8-10.8)
[2019-08-21 05:58] LABS: ALBUMIN 1.7 g/dL (3.5-5.0); BILIRUBIN,TOTAL 0.6 mg/dL (0.2-1.0); CREATININE 0.9 mg/dL (0.5-1.5); MAGNESIUM 2.1 mg/dL (1.80-2.40); PHOSPHORUS 2.8 mg/dL (2.5-4.9); POTASSIUM 3.8 mmol/L (3.5-5.1); TOTAL PROTEIN, SERUM 5.4 g/dL (6.0-8.3)
[2019-08-21] MEDS: ZOSYN 3.375GM+NS 50ML 50 ML IV SCH (06:00)
[2019-08-21] MEDS: ALBUTEROL SULFATE 0.083% 2.5 MG/3 ML INH IH SCH ×4 (06:15→23:45)
[2019-08-21] MEDS: BUDESONIDE 0.5 MG/2 ML INH IH SCH ×2 (06:23→18:35)
[2019-08-21] MEDS: Brimonidine Tartrate/Timolol (Combigan Eye Drops) 1 DROP OS SCH (09:00)
[2019-08-21] MEDS: FAMOTIDINE/PF 20 MG/2 ML VIAL IV SCH (09:30)
[2019-08-21] MEDS: CYANOCOBALAMIN (VITAMIN B-12) 1000 MCG/ML 1ML VIAL IM SCH (09:30)
[2019-08-21] MEDS: THIAMINE HCL 100 MG/ML 2ML VIAL IVP SCH (09:30)
[2019-08-21] MEDS: ENOXAPARIN SODIUM 40 MG/0.4 ML SYRINGE SQ SCH (09:31)
[2019-08-21] MEDS: HYDRALAZINE HCL 20 MG/ML VIAL IV PRN ×2 (09:35→17:58)
[2019-08-21] MEDS ORDERED: ENOXAPARIN SODIUM 1 MG/KG SQ SCH (10:45)
[2019-08-21] MEDS ORDERED: FLUTICASONE PROPIONATE HFA 220 MCG/PUFF 12 GM INHR IH SCH (11:15)
--- NOTE | 2019-08-21 11:20 | NUR ---
RECEIVED REPORT FROM ULTRASOUND, DIMITRY DOPPLER POSITIVE FOR DVT, FINDINGS REPORTED TO DR CEJA, PATIENT HAS BEEN STARTED ON LOVENOX 1MG/KG BID, ARM CONTINUES WITH REDNESS AND PITTING EDEMA +4, RADIAL AND BRACHIAL PULSES PRESENT, CAP REFILL <3 SECS, HAND WARM GOOD STRENGTH, SENSATION INTACT. WILL CONTINUE TO MONITOR.
[2019-08-21] MEDS: FLUTICASONE PROPIONATE 50MCG/SPRAY 16 GM BOTTLE EN SCH ×2 (12:30→23:11)
[2019-08-21] MEDS: ENOXAPARIN SODIUM 80 MG/0.8 ML SQ SCH ×2 (13:00→23:09)
--- NOTE | 2019-08-21 13:44 | NUR ---
SHADIA FOLLOW UP NOTE PT CONTINUES WITH TPN @65MLS/HR. KCl + D5 IV SOLN IN PLACE @75MLS/HR. I/O OF 08/20/19: 1691/1135 TOTAL NUTRITION: 1414 KCAL, 78GM PROTEIN. PT WITH NGT FOR SUCTION, IMPROVING ILEUS, PER NOTE. REC TO CONTINUE POC. RD TO MONITOR FOR ADVANCEMENT TO ENTERAL/PO NUTRITION. Addendum: 08/21/19 at [address] Amended: Links added.
[2019-08-21] MEDS ORDERED: POLYETHYLENE GLYCOL 3350 17 GM POWD.PACK PO SCH (14:15)
--- NOTE | 2019-08-21 17:00 | NUR ---
PATIENT IS CONFUSED, ORIENTED TO PERSON, STANDING ON EDGE OF BED UNSTEADY GAIT, PULLED OUT NGT TUBE, INTACT, ASSISTED TO BED, FINDINGS REPORTED TO DR CEJA, RECEIVED ORDERS FOR 1:1 SITTER, NGT REPLACED TOLERED WELL, PLACEMENT VERIFIED.
[2019-08-21] MEDS: HALOPERIDOL LACTATE 5 MG/ML VIAL IV PRN (17:59)
[2019-08-21] MEDS: FAT EMULSIONS 20% 250ML 250 ML IV SCH (19:54)
[2019-08-21] MEDS ORDERED: M.V.I. IV [ADULT] 10 ML in CLINIMIX E 5%-15% 2,000 ML IV SCH (20:00)
[2019-08-21] MEDS ORDERED: M.V.I. IV [ADULT] 10 ML in CLINIMIX E 4.25%-5% SOLUTION 2,000 ML IV SCH (21:45)
[2019-08-21] MEDS: LATANOPROST 2.5 ML DROPS OU SCH (23:10)
[2019-08-21] MEDS: ATORVASTATIN CALCIUM 40 MG TABLET PO SCH (23:10)
[2019-08-22 03:18] VITALS: BP 142/77
[2019-08-22 04:12] LABS: HEMATOCRIT 33.8 % (42-54); MEAN CORPUSCULAR HEMOGLOBIN 28.1 pg (27.0-33.0); MEAN CORPUSCULAR HGB CONC 31.7 g/dL (32.0-36.0); MEAN CORPUSCULAR VOLUME 88.7 fL (79-99); PLATELET COUNT (AUTO) 195 K/uL (130-400); RED BLOOD CELL COUNT(AUTO) 3.81 MIL/uL (4.50-6.20); RED CELL DISTRIBUTION WIDTH 15.9 % (11.0-15.5); WHITE BLOOD COUNT (AUTO) 8.5 K/uL (4.8-10.8)
[2019-08-22 04:29] LABS: ALBUMIN 1.6 g/dL (3.5-5.0); BILIRUBIN,TOTAL 0.5 mg/dL (0.2-1.0); CREATININE 0.8 mg/dL (0.5-1.5); MAGNESIUM 2.8 mg/dL (1.80-2.40); PHOSPHORUS 3.2 mg/dL (2.5-4.9); POTASSIUM 3.9 mmol/L (3.5-5.1); TOTAL PROTEIN, SERUM 5.1 g/dL (6.0-8.3)
[2019-08-22 04:36] LABS: BASOPHILS % (MANUAL) 2 % (0-2); LYMPHOCYTES % (MANUAL) 10 % (22-44); MONOCYTES % (MANUAL) 6 % (2-9); SEGMENTED NEUTROPHILS % 82 % (40-70)
[2019-08-22 04:37] LABS: PLATELET MORPHOLOGY COMMENT ADEQUATE
[2019-08-22] MEDS: INSULIN HUMULIN R 100 UNIT/ML 3ML SQ SCH ×3 (06:00→18:00)
[2019-08-22] MEDS: METOCLOPRAMIDE 10 MG/2 ML VIAL IVP SCH ×3 (06:05→19:46)
[2019-08-22] MEDS: ALBUTEROL SULFATE 0.083% 2.5 MG/3 ML INH IH SCH ×4 (06:05→23:11)
[2019-08-22] MEDS: BUDESONIDE 0.5 MG/2 ML INH IH SCH ×2 (06:06→18:36)
[2019-08-22] MEDS: METOPROLOL TARTRATE 1 MG/ML 5ML VIAL IV SCH ×3 (06:06→19:46)
[2019-08-22 07:20] VITALS: BP 158/73
[2019-08-22] MEDS: Brimonidine Tartrate/Timolol (Combigan Eye Drops) 1 DROP OS SCH (09:00)
[2019-08-22] MEDS: THIAMINE HCL 100 MG/ML 2ML VIAL IVP SCH (09:56)
[2019-08-22] MEDS: CYANOCOBALAMIN (VITAMIN B-12) 1000 MCG/ML 1ML VIAL IM SCH (09:56)
[2019-08-22] MEDS: FAMOTIDINE/PF 20 MG/2 ML VIAL IV SCH (09:56)
[2019-08-22] MEDS: ENOXAPARIN SODIUM 80 MG/0.8 ML SQ SCH ×2 (09:57→22:45)
[2019-08-22] MEDS: FLUTICASONE PROPIONATE 50MCG/SPRAY 16 GM BOTTLE EN SCH ×2 (09:58→22:34)
[2019-08-22 10:57] VITALS: BP 152/77
[2019-08-22] MEDS: KETOROLAC TROMETHAMINE 30MG/ML IV PRN (13:40)
[2019-08-22 15:54] VITALS: BP_SYST 148; BP_SYST 164; BP_DIAS 46; BP_DIAS 73
--- NOTE | 2019-08-22 17:45 | NUR ---
RECEIVED PT. AWAKE, ALERT X2. PT DENIES ANY PAIN. 20G IV TO LEFT FA ASSESSED/ FLUSHED WITH 10 MLS, INTACT PATENT AND NO REDNESS NOTED TO SITE. SWELLING NOTED TO RT ARM, DENIES ANY PAIN, PICC LINE SLAINE LOCKED. GARBER CATHETER NOTED, DRAINING YELLOW URINE. NG TUBE IN PLACE ON SUCTION LOW INT. VITALS STABLE. WILL CONTINUE TO MONITOR.
--- NOTE | 2019-08-22 17:45 | NUR ---
RECEIVED PT. AWAKE, ALERT X2. PT DENIES ANY PAIN. 20G IV TO LEFT FA ASSESSED/ FLUSHED WITH 10 MLS FLUSH. INTACT, PATENT, AND NO REDNESS NOTED TO SITE. SWELLING NOTED TO RIGHT ARM , DENIES ANY PAIN, PICC LINE SALINE LOCKED. NOTED GARBER CATHETER DRAINING YELLOW URINE. NG TUBE IN PLACE AND ON LOW INT SUCTION. VITALS STABLE. WILL CONTINUE TO MONITOR.
--- NOTE | 2019-08-22 18:32 | NUR ---
PICC line discontinued as ordered. Patient tolerated procedure without any signs of distress. Monitoring continues.
[2019-08-22 19:40] VITALS: BP 159/78
[2019-08-22] MEDS ORDERED: M.V.I. IV [ADULT] 10 ML in CLINIMIX E 4.25%-5% SOLUTION 2,000 ML IV SCH (20:45)
[2019-08-22] MEDS: ATORVASTATIN CALCIUM 40 MG TABLET PO SCH (21:00)
[2019-08-22] MEDS: LATANOPROST 2.5 ML DROPS OU SCH (22:37)
[2019-08-23] MEDS: METOCLOPRAMIDE 10 MG/2 ML VIAL IVP SCH ×5 (00:06→23:32)
[2019-08-23] MEDS: METOPROLOL TARTRATE 1 MG/ML 5ML VIAL IV SCH ×5 (00:09→23:31)
--- NOTE | 2019-08-23 00:13 | NUR ---
MD ROUNDS DR. LE HERE TO SEE PATIENT. CHECKED HIS NGT, OUT PUT, COLOSTOMY (NO STOOL YET, ONLY PASSING GAS), PPN, NO ANTIBIOTICS IN EMAR AND HE SAYS HE DOES NOT NEED THEM AT THIS TIME, WANTS SAPNA TO BE STRIPED EVERY SHIFT AND HE DID STRIP IT, REMOVED DRESSING FROM INCISION AND SAID TO LEAVE OPEN TO AIR, EXCEPT FOR LOWER AREA WHERE FOLD IS AND MOISTURE CAN FORM. APPLIED DRY GAUZE ON THAT AREA. ASKED TO GIVE MIRALAX ONE TIME DOSE AND AWAIT IF STOOL PASSES IN COLOSTOMY BY LATER TODAY. IF NOT SO, ORDER AN SMALL BOWEL FOLLOW THROUGH. MD SAID HE WILL BE AVAILABLE TO BE CALLED IF NEEDED. HE EXPLAINED PLAN TO PATIENT AND PATIENT ACKNOWLEDGED UNDERSTANDING.
[2019-08-23] MEDS ORDERED: POLYETHYLENE GLYCOL 3350 17 GM POWD.PACK PO ONE (00:15)
[2019-08-23 01:09] VITALS: BP 142/68
[2019-08-23] MEDS ORDERED: POLYETHYLENE GLYCOL 3350 17 GM POWD.PACK ONE (02:09)
--- NOTE | 2019-08-23 02:10 | NUR ---
NOTE ADMINISTERED MIRALAX VIA NGT AND WILL CLAMP FOR 1 HR PER MD INDICATION.
[2019-08-23 04:00] VITALS: BP 141/64
[2019-08-23 05:40] LABS: HEMATOCRIT 34.5 % (42-54); MEAN CORPUSCULAR HEMOGLOBIN 28.4 pg (27.0-33.0); MEAN CORPUSCULAR HGB CONC 31.9 g/dL (32.0-36.0); MEAN CORPUSCULAR VOLUME 88.9 fL (79-99); PLATELET COUNT (AUTO) 238 K/uL (130-400); RED BLOOD CELL COUNT(AUTO) 3.88 MIL/uL (4.50-6.20); RED CELL DISTRIBUTION WIDTH 15.5 % (11.0-15.5); WHITE BLOOD COUNT (AUTO) 8.8 K/uL (4.8-10.8)
[2019-08-23 05:49] LABS: CREATININE 0.8 mg/dL (0.5-1.5); POTASSIUM 4.1 mmol/L (3.5-5.1)
[2019-08-23 05:57] LABS: BASOPHILS % (MANUAL) 1 % (0-2); EOSINOPHILS % (MANUAL) 1 % (1-6); LYMPHOCYTES % (MANUAL) 8 % (22-44); MAN.DIFF COMMENT-IMPRESSION MANUAL DIFFERENTIAL; MONOCYTES % (MANUAL) 8 % (2-9); SEGMENTED NEUTROPHILS % 82 % (40-70)
[2019-08-23 05:58] LABS: PLATELET MORPHOLOGY COMMENT ADEQUATE
[2019-08-23] MEDS: INSULIN HUMULIN R 100 UNIT/ML 3ML SQ SCH ×4 (06:00→17:13)
[2019-08-23 06:32] LABS: MAGNESIUM 2.5 mg/dL (1.80-2.40); PHOSPHORUS 4.3 mg/dL (2.5-4.9)
[2019-08-23] MEDS: BUDESONIDE 0.5 MG/2 ML INH IH SCH ×2 (06:35→19:26)
[2019-08-23] MEDS: ALBUTEROL SULFATE 0.083% 2.5 MG/3 ML INH IH SCH ×3 (06:35→19:12)
[2019-08-23 07:00] VITALS: BP 134/66
[2019-08-23] MEDS ORDERED: DIATR MEGLU/DIATRIZOATE SODIUM 30 ML BOTTLE ONE (08:23)
[2019-08-23] MEDS: Brimonidine Tartrate/Timolol (Combigan Eye Drops) 1 DROP OS SCH (09:00)
[2019-08-23] MEDS: ENOXAPARIN SODIUM 80 MG/0.8 ML SQ SCH ×2 (09:59→20:32)
[2019-08-23] MEDS: FAMOTIDINE/PF 20 MG/2 ML VIAL IV SCH (09:59)
[2019-08-23] MEDS: THIAMINE HCL 100 MG/ML 2ML VIAL IVP SCH (09:59)
[2019-08-23] MEDS: FAT EMULSIONS 20% 250ML 250 ML IV SCH (10:01)
[2019-08-23] MEDS: FLUTICASONE PROPIONATE 50MCG/SPRAY 16 GM BOTTLE EN SCH ×2 (10:08→20:33)
[2019-08-23] MEDS: CYANOCOBALAMIN (VITAMIN B-12) 1000 MCG/ML 1ML VIAL IM SCH (12:49)
--- NOTE | 2019-08-23 14:13 | NUR ---
Patient notiifed of order to remove NG tube, bedside swallow test and advancing diet as tolerated if able to swallow. Patient verbalized understanding. NG tube removed, patient tolerated well without pain, only stating slight discomfort.
[2019-08-23 15:30] VITALS: BP 145/80
[2019-08-23 19:33] VITALS: BP 153/80
[2019-08-23] MEDS: LATANOPROST 2.5 ML DROPS OU SCH (20:31)
[2019-08-23] MEDS: ATORVASTATIN CALCIUM 40 MG TABLET PO SCH (20:32)
[2019-08-24] VITALS (7 sets, daily range): BP systolic 137–159; BP diastolic 54–73
[2019-08-24] MEDS: ALBUTEROL SULFATE 0.083% 2.5 MG/3 ML INH IH SCH ×5 (00:37→23:09)
[2019-08-24 05:56] LABS: ALBUMIN 1.6 g/dL (3.5-5.0); BILIRUBIN,TOTAL 0.4 mg/dL (0.2-1.0); CREATININE 0.7 mg/dL (0.5-1.5); MAGNESIUM 2.5 mg/dL (1.80-2.40); PHOSPHORUS 3.7 mg/dL (2.5-4.9); POTASSIUM 3.8 mmol/L (3.5-5.1); TOTAL PROTEIN, SERUM 5.3 g/dL (6.0-8.3)
[2019-08-24] MEDS: INSULIN HUMULIN R 100 UNIT/ML 3ML SQ SCH ×4 (06:00→16:11)
[2019-08-24] MEDS: METOCLOPRAMIDE 10 MG/2 ML VIAL IVP SCH ×3 (06:27→18:27)
[2019-08-24] MEDS: METOPROLOL TARTRATE 1 MG/ML 5ML VIAL IV SCH ×3 (06:27→18:28)
[2019-08-24] MEDS: BUDESONIDE 0.5 MG/2 ML INH IH SCH ×2 (06:56→18:37)
--- NOTE | 2019-08-24 07:58 | NUR ---
PATIENT UPDATE Pt slept wellovernight, no complaints of pain, no nausea and vomiting. Tolerating the clear liquid diet well Finishingup the ongoing PPN and will try to advance the diet to full liquid at lunch Assisted up to the chair this am,tolerated well.
[2019-08-24] MEDS: FLUTICASONE PROPIONATE 50MCG/SPRAY 16 GM BOTTLE EN SCH ×2 (08:34→22:06)
[2019-08-24] MEDS: FAMOTIDINE/PF 20 MG/2 ML VIAL IV SCH (08:35)
[2019-08-24] MEDS: THIAMINE HCL 100 MG/ML 2ML VIAL IVP SCH (08:35)
[2019-08-24] MEDS: ENOXAPARIN SODIUM 80 MG/0.8 ML SQ SCH ×2 (08:36→22:09)
[2019-08-24] MEDS: Brimonidine Tartrate/Timolol (Combigan Eye Drops) 1 DROP OS SCH (08:42)
[2019-08-24] MEDS: LATANOPROST 2.5 ML DROPS OU SCH (22:06)
[2019-08-24] MEDS: ATORVASTATIN CALCIUM 40 MG TABLET PO SCH (22:07)
[2019-08-24] MEDS: DOCUSATE SODIUM 100 MG CAP PO SCH (22:07)
[2019-08-25] MEDS: METOCLOPRAMIDE 10 MG/2 ML VIAL IVP SCH ×5 (00:39→23:29)
[2019-08-25] MEDS: METOPROLOL TARTRATE 1 MG/ML 5ML VIAL IV SCH ×3 (00:41→12:16)
[2019-08-25 03:41] VITALS: BP 144/65
[2019-08-25 05:30] LABS: BASOPHILS % (AUTO) 0.7 % (0.0-5.0); EOSINOPHILS % (AUTO) 2.4 % (0.0-8.0); HEMATOCRIT 31.3 % (42-54); LYMPHOCYTES % (AUTO) 9.5 % (21.0-51.0); MEAN CORPUSCULAR HEMOGLOBIN 28.4 pg (27.0-33.0); MEAN CORPUSCULAR HGB CONC 32.3 g/dL (32.0-36.0); MEAN CORPUSCULAR VOLUME 87.9 fL (79-99); MONOCYTES % (AUTO) 6.7 % (3.0-13.0); PLATELET COUNT (AUTO) 280 K/uL (130-400); RED BLOOD CELL COUNT(AUTO) 3.56 MIL/uL (4.50-6.20); RED CELL DISTRIBUTION WIDTH 15.6 % (11.0-15.5); WHITE BLOOD COUNT (AUTO) 7.7 K/uL (4.8-10.8)
[2019-08-25 05:50] LABS: CREATININE 0.8 mg/dL (0.5-1.5); POTASSIUM 3.8 mmol/L (3.5-5.1)
[2019-08-25] MEDS: INSULIN HUMULIN R 100 UNIT/ML 3ML SQ SCH ×4 (06:00→21:00)
[2019-08-25] MEDS: ALBUTEROL SULFATE 0.083% 2.5 MG/3 ML INH IH SCH ×4 (06:25→23:48)
[2019-08-25] MEDS: BUDESONIDE 0.5 MG/2 ML INH IH SCH ×2 (06:51→19:01)
[2019-08-25 08:07] VITALS: BP 152/68
[2019-08-25] MEDS: THIAMINE HCL 100 MG/ML 2ML VIAL IVP SCH (08:23)
[2019-08-25] MEDS: FAMOTIDINE/PF 20 MG/2 ML VIAL IV SCH (08:23)
[2019-08-25] MEDS: DOCUSATE SODIUM 100 MG CAP PO SCH ×2 (08:23→21:36)
[2019-08-25] MEDS: ENOXAPARIN SODIUM 80 MG/0.8 ML SQ SCH ×2 (08:24→21:39)
[2019-08-25 11:49] VITALS: BP 127/76
--- NOTE | 2019-08-25 12:21 | NUR ---
BLOOD SUGAR OF 146, NO COVERAGE, PT IS ON A 1/2 SLIDING SCALE, CHANGE TO AC AND HS PT IS ON A DIET.
[2019-08-25] MEDS: Brimonidine Tartrate/Timolol (Combigan Eye Drops) 1 DROP OS SCH (12:24)
[2019-08-25] MEDS: FLUTICASONE PROPIONATE 50MCG/SPRAY 16 GM BOTTLE EN SCH ×2 (12:25→21:36)
[2019-08-25] MEDS ORDERED: METOPROLOL TARTRATE 1 MG/ML 5ML VIAL IV PRN (13:15)
--- NOTE | 2019-08-25 14:45 | NUR ---
ASSIT BACK TO BED ,WITH HELP. HOB UP . CALL LIGHT IN REACH,
[2019-08-25 16:55] VITALS: BP 147/68
[2019-08-25 19:09] VITALS: BP 138/59
[2019-08-25] MEDS: ATORVASTATIN CALCIUM 40 MG TABLET PO SCH (21:35)
[2019-08-25] MEDS: LATANOPROST 2.5 ML DROPS OU SCH (21:36)
[2019-08-25 23:23] VITALS: BP 155/65
[2019-08-26 03:44] VITALS: BP 137/60
[2019-08-26] MEDS: INSULIN HUMULIN R 100 UNIT/ML 3ML SQ SCH ×4 (05:56→21:00)
[2019-08-26] MEDS: METOCLOPRAMIDE 10 MG/2 ML VIAL IVP SCH ×3 (06:07→19:52)
[2019-08-26 06:09] LABS: ALBUMIN 1.7 g/dL (3.5-5.0); BILIRUBIN,TOTAL 0.5 mg/dL (0.2-1.0); CREATININE 0.8 mg/dL (0.5-1.5); MAGNESIUM 2.1 mg/dL (1.80-2.40); PHOSPHORUS 2.8 mg/dL (2.5-4.9); TOTAL PROTEIN, SERUM 5.3 g/dL (6.0-8.3)
[2019-08-26] MEDS: BUDESONIDE 0.5 MG/2 ML INH IH SCH ×2 (06:51→18:43)
[2019-08-26] MEDS: ALBUTEROL SULFATE 0.083% 2.5 MG/3 ML INH IH SCH ×4 (06:51→23:29)
--- NOTE | 2019-08-26 08:00 | NUR ---
RT ARM KEPT UP ON A PILLOW ,DUE TO POSTIVE DVT PT IS GETTING LOVENOX , MEIDCATIO SQ BID, CMS PRESENT TO HIS RT AND , AND STRONG RADIAL PULSES NOTED . CALL LIGHT INREACH
[2019-08-26 08:25] VITALS: BP 146/61
--- NOTE | 2019-08-26 08:50 | NUR ---
DYSPHAGIA EVAL COMPLETED. NO S/S OF ASPIRATION. RECOMMEND PUREE, THIN, AND PILLS WHOLE WITH LIQUIDS. Pt DOWNGRADED TO PUREED TO COMPENSATE FOR POOR DENTITION. STRATEGIES: SMALL BITES/SIPS, SIT UPRIGHT. BRICK KILN BURNER COORDINATED WITH NURSE MAYORGA. Addendum: 08/26/[address] GENE PATEL Amended: Links added.
[2019-08-26] MEDS: FAMOTIDINE/PF 20 MG/2 ML VIAL IV SCH (08:52)
[2019-08-26] MEDS: THIAMINE HCL 100 MG/ML 2ML VIAL IVP SCH (08:52)
[2019-08-26] MEDS: ENOXAPARIN SODIUM 80 MG/0.8 ML SQ SCH ×2 (08:53→21:43)
[2019-08-26] MEDS: DOCUSATE SODIUM 100 MG CAP PO SCH ×2 (08:53→21:43)
[2019-08-26] MEDS: FLUTICASONE PROPIONATE 50MCG/SPRAY 16 GM BOTTLE EN SCH ×2 (08:56→21:47)
[2019-08-26] MEDS: Brimonidine Tartrate/Timolol (Combigan Eye Drops) 1 DROP OS SCH (08:57)
[2019-08-26] MEDS: FAT EMULSIONS 20% 250ML 250 ML IV SCH (09:58)
[2019-08-26] MEDS ORDERED: POLYETHYLENE GLYCOL 3350 17 GM POWD.PACK PO SCH (10:15)
--- NOTE | 2019-08-26 10:15 | NUR ---
DR. LE CALLED AND UPDATE OF PT.S TATUS , COLOSTOMY , GARBER CATHETER AND ACTIVITY . . CONT WITH CARE AND WILL BE IN TO SEE HIM, LATE THIS PM. OR AM.
[2019-08-26 13:39] VITALS: BP 146/76
[2019-08-26 17:26] VITALS: BP 159/71
[2019-08-26 19:40] VITALS: BP 149/62
[2019-08-26] MEDS: ATORVASTATIN CALCIUM 40 MG TABLET PO SCH (21:43)
[2019-08-26] MEDS: LATANOPROST 2.5 ML DROPS OU SCH (21:47)
[2019-08-26 23:22] VITALS: BP 138/60
[2019-08-27] MEDS: METOCLOPRAMIDE 10 MG/2 ML VIAL IVP SCH ×4 (00:28→21:46)
[2019-08-27 03:45] VITALS: BP 153/81
[2019-08-27] MEDS: KETOROLAC TROMETHAMINE 30MG/ML IV PRN (04:30)
[2019-08-27 05:40] LABS: CREATININE 0.7 mg/dL (0.5-1.5)
[2019-08-27] MEDS: ALBUTEROL SULFATE 0.083% 2.5 MG/3 ML INH IH SCH ×4 (06:25→23:43)
[2019-08-27] MEDS: BUDESONIDE 0.5 MG/2 ML INH IH SCH ×2 (06:25→19:06)
[2019-08-27] MEDS: INSULIN HUMULIN R 100 UNIT/ML 3ML SQ SCH ×4 (07:30→21:00)
--- NOTE | 2019-08-27 08:16 | NUR ---
OUTPUT 10CC REMOVED FROM SAPNA DRAIN. NO OUTPUT FROM COLOSTOMY BAG
[2019-08-27 08:18] VITALS: BP 165/96
[2019-08-27] MEDS: Brimonidine Tartrate/Timolol (Combigan Eye Drops) 1 DROP OS SCH (09:00)
[2019-08-27] MEDS: DOCUSATE SODIUM 100 MG CAP PO SCH ×2 (09:44→21:46)
[2019-08-27] MEDS: FLUTICASONE PROPIONATE 50MCG/SPRAY 16 GM BOTTLE EN SCH ×2 (09:45→22:02)
[2019-08-27] MEDS: FAMOTIDINE/PF 20 MG/2 ML VIAL IV SCH (09:45)
[2019-08-27] MEDS: THIAMINE HCL 100 MG/ML 2ML VIAL IVP SCH (09:45)
[2019-08-27] MEDS: ENOXAPARIN SODIUM 80 MG/0.8 ML SQ SCH ×2 (09:56→21:48)
--- NOTE | 2019-08-27 10:13 | NUR ---
GARBER REMOVAL: EMPTIED 200 MLS OF YELLOW URINE WITH SMALL AMOUNTS OF SEDIMENT. USING CLEAN TECHNIQUE PER DR MOBLEY REMOVED GARBER CATHETER AT 1013. BULB DEFLATED, EMPTIED 8 MLS. PT TOLERATED WELL, DENIES ANY PAIN. WILL CONTINUE TO MONITOR.
--- NOTE | 2019-08-27 10:30 | NUR ---
FOLLOW UP COMPLETED. PROCESS SAFETY SPECIALIST COORDINATED WITH NURSE WALLACE. Pt IS TOLERATING DIET RECOMMENDATIONS WITH NO S/S OF ASPIRATION. Pt WILL BE ADVANCED TO MECHANICAL SOFT SOLIDS TOLERATED. Addendum: 08/27/[address] GENE PATEL Amended: Links added.
[2019-08-27 12:17] VITALS: BP 119/63
--- NOTE | 2019-08-27 13:00 | NUR ---
PT TOLERATING GI SOFT/BLAND DIET WELL WITH NO SIGNS OF ASPIRATION. WILL CONTINUE TO MONITOR.
--- NOTE | 2019-08-27 13:22 | NUR ---
RD FOLLOW UP Pt tolerating GI Soft/[place], Puree diet with no report of GI distress, improving PO intake. Recommend to advance diet as tolerated per HEMODIALYSIS TECHNICIAN recommendations. Recommend to add 30mL ProMod TID (nutritional protein supplementation). RD to continue to monitor. Please notify as nutritional concerns arise. Thank you. Addendum: 08/27/19 at [address] Amended: Links added.
[2019-08-27 16:20] VITALS: BP 159/69
--- NOTE | 2019-08-27 16:44 | NUR ---
VOID POST-F/C REMOVAL: PT VOIDED X1 , INCONTINENT YELLOW URINE, NO ODOR NOTED WILL CONTINUE TO MONITOR.
[2019-08-27 20:53] VITALS: BP 168/77
[2019-08-27] MEDS: ATORVASTATIN CALCIUM 40 MG TABLET PO SCH (21:46)
[2019-08-27] MEDS: HYDRALAZINE HCL 20 MG/ML VIAL IV PRN (21:50)
[2019-08-27] MEDS: LATANOPROST 2.5 ML DROPS OU SCH (22:02)
--- NOTE | 2019-08-27 23:30 | NUR ---
redness and swelling to RUE, elevated on pillows, patient without any pain voiced. Addendum: 08/28/19 at 0015 by RIKA EMERSON RN RN Amended: Links added.
--- NOTE | 2019-08-27 23:30 | NUR ---
INCISION TO LOWER PART OF MIDLINE INCISION UNABLE TO BE ASSESSED EARLIER DUE TO PATIENT DID NOT WISH FOR ME TO TOUCH SITE BECAUSE IT HURT HIM WHEN I WOULD TRY TO CHECK THE AREA. AT THIS TIME, PATIENT' S HOB LOWERED TO CHECK AREA, REPOSITIONING PATIENT. I NOTED THE MEDARDO 1 TO 2 NOT ATTACHING SKIN, NO DRAINAGE NOTED. PATIENT DENIES ANY PAIN TO SITE. DRY GAUZE APPLIED TO PREVENT MOISTURE FROM GETTING INTO OPEN INCISIONAL AREA, WHICH IS APPROXIMATELY 1-1.5 CM. Addendum: 08/28/19 at 0015 by RIKA EMERSON RN RN Amended: Links added.
[2019-08-28] VITALS (8 sets, daily range): BP systolic 129–161; BP diastolic 60–75
[2019-08-28 05:23] LABS: BASOPHILS % (AUTO) 0.8 % (0.0-5.0); EOSINOPHILS % (AUTO) 1.4 % (0.0-8.0); HEMATOCRIT 33.1 % (42-54); LYMPHOCYTES % (AUTO) 5.8 % (21.0-51.0); MEAN CORPUSCULAR HEMOGLOBIN 28.4 pg (27.0-33.0); MEAN CORPUSCULAR VOLUME 88.7 fL (79-99); NEUTROPHILS % (AUTO) 85.7 % (40.0-77.0); PLATELET COUNT (AUTO) 289 K/uL (130-400); RED BLOOD CELL COUNT(AUTO) 3.73 MIL/uL (4.50-6.20); RED CELL DISTRIBUTION WIDTH 15.8 % (11.0-15.5); WHITE BLOOD COUNT (AUTO) 8.7 K/uL (4.8-10.8)
[2019-08-28 05:49] LABS: CREATININE 0.7 mg/dL (0.5-1.5)
[2019-08-28] MEDS: METOCLOPRAMIDE 10 MG/2 ML VIAL IVP SCH ×5 (06:55→23:35)
[2019-08-28] MEDS: ALBUTEROL SULFATE 0.083% 2.5 MG/3 ML INH IH SCH ×4 (06:56→23:06)
[2019-08-28] MEDS: BUDESONIDE 0.5 MG/2 ML INH IH SCH ×2 (07:04→18:54)
[2019-08-28] MEDS: INSULIN HUMULIN R 100 UNIT/ML 3ML SQ SCH ×4 (07:30→21:00)
[2019-08-28] MEDS: THIAMINE HCL 100 MG/ML 2ML VIAL IVP SCH (08:43)
[2019-08-28] MEDS: FAMOTIDINE/PF 20 MG/2 ML VIAL IV SCH (08:46)
[2019-08-28] MEDS: DOCUSATE SODIUM 100 MG CAP PO SCH ×2 (08:46→21:00)
[2019-08-28] MEDS: ENOXAPARIN SODIUM 80 MG/0.8 ML SQ SCH ×2 (08:47→22:00)
[2019-08-28] MEDS: FLUTICASONE PROPIONATE 50MCG/SPRAY 16 GM BOTTLE EN SCH ×2 (08:48→21:58)
[2019-08-28] MEDS: Brimonidine Tartrate/Timolol (Combigan Eye Drops) 1 DROP OS SCH (08:58)
[2019-08-28] MEDS: FAT EMULSIONS 20% 250ML 250 ML IV SCH (10:00)
[2019-08-28] MEDS ORDERED: POLYETHYLENE GLYCOL 3350 17 GM POWD.PACK PO SCH (11:45)
--- NOTE | 2019-08-28 11:56 | NUR ---
CM NOTE/DECLINED SNF PATIENT WITH HISTORY OF DEMENTIA. CALLED, PER SPOUSE, DECLINING SNF AT THE MOMENT. PER , IF PATIENT ABLE TO WALK, SHE WANTS HIM TO RETURN HOME. PER PT DEPARTMENT, PATIENT HAS STRENGHT TO AMBULATE TO BATHROOM OR KITCHEN, ABLE TO GET IN AND OUT OF BED AND INTO CHAIR. THIS RELAYED TO SPOUSE, PER SPOUSE, PLAN IS TO DC HOME. PRIMARY NURSE, MARIFER CERNA AND DR. FOLEY MADE AWARE OF DECLINE OF SNF.
[2019-08-28 11:59] LABS: MAGNESIUM 2.1 mg/dL (1.80-2.40); PHOSPHORUS 3.2 mg/dL (2.5-4.9)
--- NOTE | 2019-08-28 12:05 | NUR ---
DR FORRESTER PAGED REGARDING CONSULT. PENDING CB
--- NOTE | 2019-08-28 18:10 | NUR ---
DR FORRESTER CONSULT DR FORRESTER CAME TO SEE PATIENT REGARDING PHIMOSIS. DR FORRESTER USED MANUAL PRESSURE IN ORDER TO DECREASE SWELLING TO PENIS AND RETRACT [place]. PATIENT TOLERATED WELL, NO C/O PAIN AT THIS TIME.
[2019-08-28] MEDS: ATORVASTATIN CALCIUM 40 MG TABLET PO SCH (21:58)
[2019-08-28] MEDS: LATANOPROST 2.5 ML DROPS OU SCH (21:59)
[2019-08-29 04:00] VITALS: BP 134/65
[2019-08-29] MEDS: METOCLOPRAMIDE 10 MG/2 ML VIAL IVP SCH ×3 (05:24→17:52)
[2019-08-29] MEDS: INSULIN HUMULIN R 100 UNIT/ML 3ML SQ SCH ×4 (05:28→21:00)
[2019-08-29] MEDS: BUDESONIDE 0.5 MG/2 ML INH IH SCH ×2 (06:50→18:32)
[2019-08-29] MEDS: ALBUTEROL SULFATE 0.083% 2.5 MG/3 ML INH IH SCH ×4 (06:50→23:03)
[2019-08-29 08:13] VITALS: BP 157/86
[2019-08-29] MEDS: Brimonidine Tartrate/Timolol (Combigan Eye Drops) 1 DROP OS SCH (09:00)
[2019-08-29] MEDS: FAMOTIDINE/PF 20 MG/2 ML VIAL IV SCH (09:09)
[2019-08-29] MEDS: THIAMINE HCL 100 MG/ML 2ML VIAL IVP SCH (09:10)
[2019-08-29] MEDS: NEOMY SULF/BACITRA/POLYMYXIN B 1 EACH PACKET TP SCH (09:11)
[2019-08-29] MEDS: DOCUSATE SODIUM 100 MG CAP PO SCH ×2 (09:12→21:40)
[2019-08-29] MEDS: METOPROLOL SUCCINATE 50 MG TAB.SR.24H PO SCH (09:12)
[2019-08-29] MEDS: FLUTICASONE PROPIONATE 50MCG/SPRAY 16 GM BOTTLE EN SCH ×2 (09:12→21:41)
[2019-08-29] MEDS: ENOXAPARIN SODIUM 80 MG/0.8 ML SQ SCH ×2 (09:17→21:00)
[2019-08-29] MEDS ORDERED: POLYETHYLENE GLYCOL 3350 17 GM POWD.PACK PO SCH (10:15)
[2019-08-29] MEDS ORDERED: POLYETHYLENE GLYCOL 3350 17 GM POWD.PACK ONE (10:38)
[2019-08-29 11:25] VITALS: BP 119/60
[2019-08-29 16:56] VITALS: BP 163/62
--- NOTE | 2019-08-29 16:57 | NUR ---
CM NOTE/ALONDRA LYON REVISITED REFERRAL FOR [facility], PER SPOUSE, [place] [facility]. [facility] FILLED. [facility]ACKET AND [facility] FAXED AND RECEIVED, CONFIRMED RECEIVED. GERDA AT [facility] AWARE, PENDING AUTHORIZATION.
[2019-08-29 20:00] VITALS: BP 155/72
[2019-08-29] MEDS: ATORVASTATIN CALCIUM 40 MG TABLET PO SCH (21:40)
[2019-08-29] MEDS: LATANOPROST 2.5 ML DROPS OU SCH (21:41)
[2019-08-29 23:56] VITALS: BP 143/72
[2019-08-30 04:00] VITALS: BP 178/73
[2019-08-30] MEDS: METOCLOPRAMIDE 10 MG/2 ML VIAL IVP SCH ×4 (05:24→18:00)
[2019-08-30] MEDS: INSULIN HUMULIN R 100 UNIT/ML 3ML SQ SCH ×4 (05:32→21:00)
[2019-08-30 05:55] LABS: BASOPHILS % (AUTO) 1.1 % (0.0-5.0); EOSINOPHILS % (AUTO) 1.8 % (0.0-8.0); HEMATOCRIT 33.3 % (42-54); LYMPHOCYTES % (AUTO) 7.6 % (21.0-51.0); MEAN CORPUSCULAR HEMOGLOBIN 28.2 pg (27.0-33.0); MEAN CORPUSCULAR HGB CONC 31.8 g/dL (32.0-36.0); MEAN CORPUSCULAR VOLUME 88.6 fL (79-99); MONOCYTES % (AUTO) 7.9 % (3.0-13.0); NEUTROPHILS % (AUTO) 81.3 % (40.0-77.0); PLATELET COUNT (AUTO) 372 K/uL (130-400); RED BLOOD CELL COUNT(AUTO) 3.76 MIL/uL (4.50-6.20); RED CELL DISTRIBUTION WIDTH 15.9 % (11.0-15.5); WHITE BLOOD COUNT (AUTO) 7.2 K/uL (4.8-10.8)
[2019-08-30 06:06] LABS: CREATININE 0.6 mg/dL (0.5-1.5); MAGNESIUM 1.9 mg/dL (1.80-2.40); POTASSIUM 3.9 mmol/L (3.5-5.1)
[2019-08-30] MEDS: BUDESONIDE 0.5 MG/2 ML INH IH SCH ×2 (06:46→18:04)
[2019-08-30] MEDS: ALBUTEROL SULFATE 0.083% 2.5 MG/3 ML INH IH SCH ×3 (06:46→18:04)
[2019-08-30 08:00] VITALS: BP 160/75
[2019-08-30] MEDS: METOPROLOL SUCCINATE 50 MG TAB.SR.24H PO SCH (08:34)
[2019-08-30] MEDS: POLYETHYLENE GLYCOL 3350 17 GM POWD.PACK PO SCH (08:34)
[2019-08-30] MEDS: FAMOTIDINE/PF 20 MG/2 ML VIAL IV SCH (08:34)
[2019-08-30] MEDS: DOCUSATE SODIUM 100 MG CAP PO SCH ×2 (08:34→21:58)
[2019-08-30] MEDS: ENOXAPARIN SODIUM 80 MG/0.8 ML SQ SCH ×2 (08:35→21:59)
[2019-08-30] MEDS: FLUTICASONE PROPIONATE 50MCG/SPRAY 16 GM BOTTLE EN SCH ×2 (08:36→21:58)
[2019-08-30] MEDS: NEOMY SULF/BACITRA/POLYMYXIN B 1 EACH PACKET TP SCH (08:37)
[2019-08-30] MEDS: Brimonidine Tartrate/Timolol (Combigan Eye Drops) 1 DROP OS SCH (08:38)
[2019-08-30] MEDS: THIAMINE HCL 100 MG/ML 2ML VIAL IVP SCH (09:00)
[2019-08-30 11:30] VITALS: BP 140/63
--- NOTE | 2019-08-30 14:31 | NUR ---
RD FOLLOW UP NOTE Pt tolerating GI Soft/[place] Diet order, advanced from Puree diet. Good PO intake. No report of GI distress. Noted 3+ RUE, non-pit edema. RD to continue to monitor nutritional related labs and PO status. Please notify as additional nutrition concerns arise. Thank you. Addendum: 08/30/19 at [address] Amended: Links added.
--- NOTE | 2019-08-30 14:52 | NUR ---
CM NOTE/[facility] ACCEPTED PER [facility], PATIENT ACCEPTED TO FACILITY. DR. FOLEY MADE AWARE, STATES DR. LE PENDING TO REMOVE SAPNA DRAIN, POSSIBLE DC 08/30. BRYAN CERNA, PRIMARY NURSE, MADE AWARE OF ACCEPTANCE AND POSS DC DATE.
[2019-08-30 16:00] VITALS: BP 180/74
--- NOTE | 2019-08-30 16:12 | NUR ---
paged dr. varma through answering service. will wait for his call back.
--- NOTE | 2019-08-30 17:46 | NUR ---
call answering service follow up page for dr. varma
--- NOTE | 2019-08-30 18:23 | NUR ---
call dr. vail to notify him that dr. varma has not call back.
--- NOTE | 2019-08-30 18:36 | NUR ---
attempted to call dr. varma on his cellphone at this time. no answer and the voicemail is full.
[2019-08-30 20:00] VITALS: BP 141/69
[2019-08-30] MEDS: LATANOPROST 2.5 ML DROPS OU SCH (21:57)
[2019-08-30] MEDS: ATORVASTATIN CALCIUM 40 MG TABLET PO SCH (21:58)
[2019-08-31] VITALS: BP 140/64
[2019-08-31] MEDS: ALBUTEROL SULFATE 0.083% 2.5 MG/3 ML INH IH SCH ×3 (00:03→11:17)
[2019-08-31] MEDS: METOCLOPRAMIDE 10 MG/2 ML VIAL IVP SCH ×3 (00:24→12:11)
[2019-08-31 04:44] VITALS: BP 157/64
[2019-08-31] MEDS: BUDESONIDE 0.5 MG/2 ML INH IH SCH (06:08)
[2019-08-31] MEDS: INSULIN HUMULIN R 100 UNIT/ML 3ML SQ SCH ×3 (07:06→16:30)
[2019-08-31 08:50] VITALS: BP 148/64
[2019-08-31] MEDS ORDERED: ISOSORBIDE MONO 30MG TAB SR PO SCH (09:00)
[2019-08-31] MEDS: THIAMINE HCL 100 MG/ML 2ML VIAL IVP SCH (09:00)
[2019-08-31] MEDS: Brimonidine Tartrate/Timolol (Combigan Eye Drops) 1 DROP OS SCH (09:00)
[2019-08-31] MEDS ORDERED: LOSARTAN 50 MG TABLET PO SCH (09:00)
[2019-08-31] MEDS: FLUTICASONE PROPIONATE 50MCG/SPRAY 16 GM BOTTLE EN SCH (09:02)
[2019-08-31] MEDS: DOCUSATE SODIUM 100 MG CAP PO SCH (09:02)
[2019-08-31] MEDS: NEOMY SULF/BACITRA/POLYMYXIN B 1 EACH PACKET TP SCH (09:03)
[2019-08-31] MEDS: POLYETHYLENE GLYCOL 3350 17 GM POWD.PACK PO SCH (09:03)
[2019-08-31] MEDS: ENOXAPARIN SODIUM 80 MG/0.8 ML SQ SCH (09:04)
[2019-08-31] MEDS: FAMOTIDINE/PF 20 MG/2 ML VIAL IV SCH (09:04)
[2019-08-31] MEDS: METOPROLOL SUCCINATE 50 MG TAB.SR.24H PO SCH (09:06)
[2019-08-31 11:59] VITALS: BP 126/65
[2019-08-31] MEDS ORDERED: THIAMINE HCL 100 MG TABLET PO SCH (12:10)
[2019-08-31] MEDS ORDERED: PHARMACY COMMUNICATION MISC SCH (13:00)
[2019-08-31] MEDS ORDERED: HYDROCORTISONE 1% 28.35 GM CREAM TP SCH (13:32)
--- NOTE | 2019-08-31 14:00 | NUR ---
ALONDRA DALLAS REPORT REPORT CALLED IN TO [facility] SPOKE TO VENECIA CERNA. PATIENT WILL BE TRANSPORTED VIA GP FACILITY [facility]. IV DISCONTINUED. INFORMED PATIENTS ABOUT TRANSFER TO [facility].
--- NOTE | 2019-08-31 16:00 | NUR ---
ALONDRA LYON CALLED GP FOR ETA ON [facility]. SPOKE TO VENECIA CERNA. SHE WILL CHECK WITH JIG AND FIXTURE MAKER.
--- NOTE | 2019-08-31 17:10 | NUR ---
TRANSFER PATIENT TAKEN TO [facility] VIA [facility].
== END 2019-08-31 17:10 | DRG 335 ==
LOC: EDH 18:25 → EDHIP 19:52 → 3DH 21:08 → DAHIP 08-17 17:16 → 2AH 08-20 12:04 → DAHIP 08-20 12:13 → 4AH 08-20 21:08 → 3CH 08-22 18:22
PROVIDERS: ADMIT Internal Medicine; ATTEND Internal Medicine
PROC: 0D9670Z Drainage of Stomach with Drainage Device, Via Natural or Artificial Opening (ICD-10-PCS; 2019-08-15)
PROC: 3E0T3BZ Introduction of Anesthetic Agent into Peripheral Nerves and Plexi, Percutaneous Approach (ICD-10-PCS; 2019-08-17)
PROC: 0DNM0ZZ Release Descending Colon, Open Approach (ICD-10-PCS; principal; 2019-08-17 13:10)
PROC: 0WQF0ZZ Repair Abdominal Wall, Open Approach (ICD-10-PCS; 2019-08-17 13:10)
PROC: 0DNL0ZZ Release Transverse Colon, Open Approach (ICD-10-PCS; 2019-08-17 13:10)
PROC: 0TQB0ZZ Repair Bladder, Open Approach (ICD-10-PCS; 2019-08-17 13:10)
PROC: 02HV33Z Insertion of Infusion Device into Superior Vena Cava, Percutaneous Approach (ICD-10-PCS; 2019-08-18)
DX: K43.3 Parastomal hernia with obstruction, without gangrene (principal); G92 Toxic encephalopathy; E87.1 Hypo-osmolality and hyponatremia; E87.3 Alkalosis; I13.0 Hypertensive heart and chronic kidney disease with heart failure and stage 1 through stage 4 chronic kidney disease, or unspecified chronic kidney disease; I50.42 Chronic combined systolic (congestive) and diastolic (congestive) heart failure; K56.7 Ileus, unspecified; N39.0 Urinary tract infection, site not specified; N17.9 Acute kidney failure, unspecified; E83.51 Hypocalcemia; N32.89 Other specified disorders of bladder; D64.9 Anemia, unspecified; E11.22 Type 2 diabetes mellitus with diabetic chronic kidney disease; E78.5 Hyperlipidemia, unspecified; E86.0 Dehydration; E87.6 Hypokalemia; E87.8 Other disorders of electrolyte and fluid balance, not elsewhere classified; F03.90 Unspecified dementia, unspecified severity, without behavioral disturbance, psychotic disturbance, mood disturbance, and anxiety; I48.0 Paroxysmal atrial fibrillation; J44.9 Chronic obstructive pulmonary disease, unspecified; K52.9 Noninfective gastroenteritis and colitis, unspecified; N18.9 Chronic kidney disease, unspecified; N47.2 Paraphimosis; I49.5 Sick sinus syndrome; N48.89 Other specified disorders of penis; Z93.3 Colostomy status; Z85.038 Personal history of other malignant neoplasm of large intestine; Z79.01 Long term (current) use of anticoagulants; Z90.49 Acquired absence of other specified parts of digestive tract; Z95.0 Presence of cardiac pacemaker
CPT/HCPCS: 36415; 36600; 70450; 71045; 74018; 74021; 74176; 74250; 76770; 80048; 80053; 81001; 82435; 82570; 82607; 82746; 82803; 82947; 82948; 83605; 83615; 83690; 83735; 83935; 84100; 84132; 84133; 84145; 84295; 84300; 84436; 84443; 84484; 84540; 84550; 85018; 85025; 85027; 85610; 85730; 86592; 86850; 86900; 86901; 87040; 87088; 92610; 93005; 93971; 94640; 94664; 97039; C1894; G0378; J0330; J0360; J0694; J1630; J1650; J1815; J1885; J2001; J2060; J2370; J2405; J2543; J2704; J2710; J2765; J2795; J3010; J3411; J3420; J3480; J3490; J7030; J7040; J7042; J7070; J7120; Q9963